=== PATIENT | male | born 1970 | race African-American/Black ===

== ENCOUNTER 2017-12-12 09:18 | Inpatient (IN) | payer OTHER ==
[2017-12-12 10:12] VITALS: BMI 21.1
--- NOTE | 2017-12-12 10:29 | HP ---
COWS - Scale Resting Pulse: 0= [place] 80 or Below Sweatin= Chills/Flushing Restless Observation: 1= Difficult to Sit Still Pupil Size: 0= Normal to Room Light Bone or Joint Aches: 1= Mild Discomfort Runny Nose/ Eye Tearin= Nasal Congestion GI Upset > 30mins: 1= Stomach Cramp Tremor Observation: 1= Tremor [place], Not Seen Yawning Observation: 1= 1-2x During Session Anxiety or Irritability: 2=Irritable/Anxious Goose Flesh Skin: 0=Smooth Skin COWS Score: 9 Admission ROS BHS - HPI Chief Complaint: I'm too tired, I can't keep running after drugs, I want to stop Allergies/Adverse Reactions: Allergies Allergy/AdvReac Type Severity Reaction Status Date / Time No Known Allergies Allergy Verified 12/12/17 10:19 History of Present Illness: 47 yo gentleman here for detox from opiates - using heroin and street methadone - also using cocaine. Only occasional alcohol. Denies seizures, does have black outs sometimes. Previously detoxed in 2014 and also was in rehab. Exam Limitations: Clinical Condition - Ebola screening Have you traveled outside of the country in the last 21 days: No Have you had contact with anyone from an Ebola affected area: No Have you been sick,other than usual withdrawal symptoms: No Do you have a fever: No - Review of Systems Constitutional: Loss of Appetite, Malaise, Changes in sleep, Weakness, Unintentional Wgt. Loss EENT: reports: Nose Congestion Respiratory: reports: No Symptoms reported Cardiac: reports: No Symptoms Reported GI: reports: Poor Appetite, Poor Fluid Intake : reports: Dysuria Musculoskeletal: reports: Joint Pain, Muscle Pain Integumentary: reports: No Symptoms Reported Neuro: reports: Headache Endocrine: reports: No Symptoms Reported Hematology: reports: No Symptoms Reported Psychiatric: reports: Judgement Intact, Mood/Affect Appropiate, Orientated x3 Other Systems: Reviewed and Negative Patient History - Patient Medical History Hx Anemia: No Hx Asthma: No Hx Chronic Obstructive Pulmonary Disease (COPD): No Hx Cancer: No Hx Cardiac Disorders: No Hx Congestive Heart Failure: No Hx Hypertension: No Hx Hypercholesterolemia: Yes (not taking medication) Hx Pacemaker: No HX Cerebrovascular Accident: No Hx Seizures: No Hx Dementia: No Hx Diabetes: No Hx Gastrointestinal Disorders: No Hx Liver Disease: No Hx Genitourinary Disorders: No Hx Sexually Transmitted Disorders: No Hx Renal Disease (ESRD): No Hx Thyroid Disease: No Hx Human Immunodeficiency Virus (HIV): No Hx Hepatitis C: No Hx Depression: No Hx Suicide Attempt: No Hx Bipolar Disorder: Yes (history of meds (seroquel) none x 1 year) Hx Schizophrenia: No - Patient Surgical History Hx Orthopedic Surgery: Yes (left arm broken forearm) - PPD History Previous Implant?: Yes Documented Results: Negative w/o proof PPD to be Administered?: Yes - Reproductive History Patient is a Female of Child Bearing Age (11 -55 yrs old): No (male) - Smoking Cessation Smoking history: Current every day smoker Have you smoked in the past 12 months: Yes Initiated information on smoking cessation: Yes 'Breaking Loose' booklet given: 12/12/17 (give on floor) - Substance & Tx. History Hx Alcohol Use: No Hx Substance Use: Yes Substance Use Type: Cocaine, Heroin, Opiates Hx Substance Use Treatment: Yes (detox, rehab) - Substances Abused Heroin Route: Inhalation Frequency: Daily Amount used: 5 bags Age of first use: 44 Date of Last Use: 12/11/17 Non-Rx Methadone Frequency: 1-2 times per week Amount used: 40mg Age of first use: 47 Date of Last Use: 12/11/17 Cocaine Route: Inhalation Frequency: Daily Amount used: $400 Age of first use: 24 Date of Last Use: 12/11/17 Family Disease History - Family Disease History Family Disease History: [place]: Father (, prostate cancer), Mother (living, lung cancer), Other: Father, Mother, Sister (four - living - healthy) Admission Physical Exam [facility] - Vital Signs Vital Signs: Vital Signs - 24 hr 12/12/17 10:09 Temperature 97.1 F L Pulse Rate 75 Respiratory 18 Rate Blood Pressure 130/75 - Physical General Appearance: Yes: Nourished, Appropriately Dressed, Mild Distress, Irritable, Anxious HEENTM: Yes: Hearing grossly Normal, Normocephalic, Normal Voice, Pharynx Normal Respiratory: Yes: Lungs Clear, Normal Breath Sounds Neck: Yes: No masses,lesions,Nodules, Supple Breast: Yes: Breast Exam Deferred Cardiology: Yes: Regular Rhythm, Regular Rate Abdominal: Yes: Flat, Soft Genitourinary: Yes: Dysuria Back: Yes: Normal Inspection Musculoskeletal: Yes: full range of Motion, Gait Steady, Back pain, Muscle Pain Extremities: Yes: Normal Capillary Refill, Normal Inspection, Normal Range of Motion, Non-Tender Neurological: Yes: Fully Oriented, Alert, Motor Strength 5/5, Normal Mood/Affect , Normal Response Integumentary: Yes: Normal Color, Warm, Moist Lymphatic: Yes: Within Normal Limits - Diagnostic (1) Opioid dependence with withdrawal Current Visit: Yes Status: Chronic (2) Cocaine dependence Current Visit: Yes Status: Chronic Qualifiers: Substance use status: uncomplicated Qualified Code(s): F14.20 - Cocaine dependence, uncomplicated (3) Nicotine dependence Current Visit: Yes Status: Chronic Qualifiers: Nicotine product type: cigarettes Substance use status: uncomplicated Qualified Code(s): F17.210 - Nicotine dependence, cigarettes, uncomplicated Cleared for Admission [facility] - Detox or Rehab [facility] Level of Care: Medically Managed Detox Regimen/Protocol: Methadone [facility] Breath Alcohol Content Breath Alcohol Content: 0 Urine Drug Screen - Results Drug Screen Negative: No Urine Drug Screen Results: MARION-Cocaine, OPI-Opiates, MTD-Methadone
[2017-12-12] MEDS ORDERED: MAGNESIUM HYDROX 2400MG/30ML ORAL SUSPENSION 30 ML CUP PO PRN (10:30)
[2017-12-12] MEDS ORDERED: NICOTINE POLACRILEX 4 MG GUM BUC PRN (10:30)
[2017-12-12] MEDS ORDERED: hydrOXYzine PAMOATE 50 MG CAPSULE (FP) PO PRN (10:30)
[2017-12-12] MEDS ORDERED: MAGNESIUM CITRATE 300 ML BOTTLE PO PRN (10:30)
[2017-12-12] MEDS ORDERED: MAG HYDROX/AL HYDROX/SIMETH 30 ML UNIT-DOSE CUP PO PRN (10:30)
[2017-12-12] MEDS ORDERED: P-EPHED 60MG/TRIPROLIDI 2.5MG TABLET PO PRN (10:30)
[2017-12-12] MEDS ORDERED: LOPERAMIDE HCL 2 MG CAPSULE PO PRN (10:30)
[2017-12-12] MEDS ORDERED: MENTHOL/PHENOL 1 EACH UD MM PRN (10:30)
[2017-12-12] MEDS ORDERED: guaiFENesin/D-METHORPHAN HB 10 ML UNIT-DOSE CUPS PO PRN (10:30)
[2017-12-12] MEDS ORDERED: METHADONE HCL 10 MG TABLET (FOR DETOX USE ONLY) PO ONE ×2 (12:00→23:00)
[2017-12-12] MEDS: diazePAM 5 MG TABLET PO PRN (12:32)
[2017-12-12 19:45] LABS: URINE APPEARANCE TURBID; URINE BILIRUBIN NEGATIVE (NEGATIVE); URINE BLOOD NEGATIVE (NEGATIVE); URINE COLOR AMBER; URINE GLUCOSE (UA) NEGATIVE (NEGATIVE); URINE KETONE NEGATIVE (NEGATIVE); URINE LEUK ESTERASE TRACE (NEGATIVE); URINE NITRITE NEGATIVE (NEGATIVE); URINE PROTEIN NEGATIVE (NEGATIVE); URINE UROBILINOGEN 4.0 E.U/dl mg/dL (0.2-1.0)
[2017-12-12 19:52] LABS: EPI CELLS RARE /HPF (FEW); URINE BACTERIA RARE /hpf (NONE SEEN); URINE MUCUS MANY
[2017-12-12] MEDS: THIAMINE HCL 100 MG TABLET (FP) PO SCH (22:43)
[2017-12-13] MEDS: IBUPROFEN 400 MG TABLET (FP) PO PRN (08:26)
--- NOTE | 2017-12-13 09:41 | CONSULT ---
[facility] Psychiatric Consult - Data Date of interview: 12/13/17 Admission source: Self-referred Identifying data: Mr Garcia is a 47 years old single Black male, unemployed with no source of income, homeless seeking detox treatment for heroin, methadone and cocaine Substance Abuse History: Reports history of opoid and cocaine use. Refer to addiction counselor's note for further information Medical History: Significant for hyperlipidemia and history of orthosurgery for fracture left arm. Smokes cigarettes 1ppd daily Psychiatric History: Denies history of previous psychiatric treatment Physical/Sexual Abuse/Trauma History: Denies history of verbal, physical or sexual abuse as well as DV relationship Additional Comment: Reports history of 2 previous arrests including one felony conviction. Reports being on parole till 2019 Mental Status Exam - Mental Status Exam Alert and Oriented to: Time, Place, Person Cognitive Function: Fair Patient Appearance: Well Groomed Mood: Depressed Affect: Appropriate Patient Behavior: Cooperative Speech Pattern: Clear Voice Loudness: Normal Thought Process: Intact, Goal Oriented Thought Disorder: Not Present Hallucinations: Denies Suicidal Ideation: Denies Homicidal Ideation: Denies Insight/Judgement: Poor Sleep: Poorly Appetite: Good Muscle strength/Tone: Normal Gait/Station: Normal Psychiatric Findings - Problem List ([place] 1, 2,3) (1) Substance induced mood disorder Current Visit: Yes Status: Acute (2) Substance-induced sleep disorder Current Visit: Yes Status: Acute (3) Opioid dependence with withdrawal Current Visit: Yes Status: Acute (4) Cocaine dependence Current Visit: Yes Status: Acute Qualifiers: Substance use status: uncomplicated Qualified Code(s): F14.20 - Cocaine dependence, uncomplicated (5) Nicotine dependence Current Visit: Yes Status: Chronic Qualifiers: Nicotine product type: cigarettes Substance use status: uncomplicated Qualified Code(s): F17.210 - Nicotine dependence, cigarettes, uncomplicated (6) Hyperlipidemia Current Visit: Yes Status: Chronic - Initial Treatment Plan Initial Treatment Plan: 1) Start Ambien 10 mg po HS prn for insomnia. 2) Continue inpatient detoxification
[2017-12-13] MEDS ORDERED: METHADONE HCL 10 MG TABLET (FOR DETOX USE ONLY) PO ONE (10:00)
[2017-12-13 10:29] LABS: HEMATOCRIT 38.9 % (35.4-49); HEMOGLOBIN 12.6 GM/dL (11.7-16.9); MCH 29.5 pg (25.7-33.7); MCHC 32.3 g/dl (32.0-35.9); MEAN CELL VOLUME 91.2 fl (80-96); MEAN PLT VOLUME 8.4 fl (7.5-11.1); PLATELET COUNT 214 K/MM3 (134-434); RBC 4.27 M/mm3 (4.00-5.60); RDW 14.7 % (11.9-15.9)
[2017-12-13 10:37] LABS: CHLORIDE 106 mmol/L (98-107); POTASSIUM 4.4 mmol/L (3.5-5.1); SODIUM 142 mmol/L (136-145)
[2017-12-13 10:50] LABS: ALBUMIN 3.2 g/dl (3.4-5.0); ALK PHOS 69 U/L (45-117); ANION GAP 4 (8-16); BILIRUBIN,TOTAL 0.2 mg/dL (0.2-1.0); BLOOD UREA NITROGEN 15 mg/dL (7-18); CALCIUM 8.6 mg/dL (8.5-10.1); CO2 32 mmol/L (21-32); CREATININE 1.1 mg/dL (0.7-1.3); GLUCOSE,RANDOM 95 mg/dL (74-106); SGOT/AST 10 U/L (15-37); SGPT/ALT 15 U/L (12-78); TOT PROT 6.5 g/dl (6.4-8.2)
[2017-12-13] MEDS: diazePAM 5 MG TABLET PO PRN (11:14)
[2017-12-13] MEDS: PRENATAL VITAMINS W/ FOLIC ACID TABLET (FP) PO SCH (11:14)
[2017-12-13] MEDS: ACETAMINOPHEN 325 MG TABLET (FP) PO PRN (11:14)
--- NOTE | 2017-12-13 11:39 | PN ---
BHS COWS - Scale Resting Pulse: 0= [place] 80 or Below Sweatin= Chills/Flushing Restless Observation: 1= Difficult to Sit Still Pupil Size: 1= Pupils >than Normal Bone or Joint Aches: 1= Mild Discomfort Runny Nose/ Eye Tearin= Nasal Congestion GI Upset > 30mins: 1= Stomach Cramp Tremor Observation of Outstretched Hands: 1= Tremor [place], Not Seen Yawning Observation: 0= None Anxiety or Irritability: 0= None Goose Flesh Skin: 0=Smooth Skin COWS Score: 7 BHS Progress Note (SOAP) Subjective: general body ache nasal congestion gi distress Objective: 12/13/17 11:38 Vital Signs Temperature 96.8 F L 12/13/17 10:23 Pulse Rate 75 12/13/17 10:23 Respiratory Rate 18 12/13/17 10:23 Blood Pressure 124/64 12/13/17 10:23 O2 Sat by Pulse Oximetry (%) Laboratory Last Values WBC 5.0 K/mm3 (4.0-10.0) 12/13/17 07:40 RBC 4.27 M/mm3 (4.00-5.60) 12/13/17 07:40 Hgb 12.6 GM/dL (11.7-16.9) 12/13/17 07:40 Hct 38.9 % (35.4-49) 12/13/17 07:40 MCV 91.2 fl (80-96) 12/13/17 07:40 MCH 29.5 pg (25.7-33.7) 12/13/17 07:40 MCHC 32.3 g/dl (32.0-35.9) 12/13/17 07:40 RDW 14.7 % (11.9-15.9) 12/13/17 07:40 Plt Count 214 K/MM3 (134-434) 12/13/17 07:40 MPV 8.4 fl (7.5-11.1) 12/13/17 07:40 Sodium 142 mmol/L (136-145) 12/13/17 07:40 Potassium 4.4 mmol/L (3.5-5.1) 12/13/17 07:40 Chloride 106 mmol/L (98-107) 12/13/17 07:40 Carbon Dioxide 32 mmol/L (21-32) 12/13/17 07:40 Anion Gap 4 (8-16) L 12/13/17 07:40 BUN 15 mg/dL (7-18) 12/13/17 07:40 Creatinine 1.1 mg/dL (0.7-1.3) 12/13/17 07:40 Creat Clearance w eGFR > 60 (>60) 12/13/17 07:40 Random Glucose 95 mg/dL (74-106) 12/13/17 07:40 Calcium 8.6 mg/dL (8.5-10.1) 12/13/17 07:40 Total Bilirubin 0.2 mg/dL (0.2-1.0) 12/13/17 07:40 AST 10 U/L (15-37) L 12/13/17 07:40 ALT 15 U/L (12-78) 12/13/17 07:40 Alkaline Phosphatase 69 U/L (45-117) 12/13/17 07:40 Total Protein 6.5 g/dl (6.4-8.2) 12/13/17 07:40 Albumin 3.2 g/dl (3.4-5.0) L 12/13/17 07:40 Urine Color [place] 12/12/17 19:00 Urine Appearance Turbid 12/12/17 19:00 Urine pH 5.0 (5.0-8.0) 12/12/17 19:00 Ur Specific [place] 1.026 (1.001-1.035) 12/12/17 19:00 Urine Protein Negative (NEGATIVE) 12/12/17 19:00 Urine Glucose (UA) Negative (NEGATIVE) 12/12/17 19:00 Urine Ketones Negative (NEGATIVE) 12/12/17 19:00 Urine Blood Negative (NEGATIVE) 12/12/17 19:00 Urine Nitrite Negative (NEGATIVE) 12/12/17 19:00 Urine Bilirubin Negative (NEGATIVE) 12/12/17 19:00 Urine Urobilinogen 4.0 e.u/dl mg/dL (0.2-1.0) 12/12/17 19:00 Ur Leukocyte Esterase Trace (NEGATIVE) 12/12/17 19:00 Urine WBC (Auto) 11 /hpf (3-5) 12/12/17 19:00 Urine RBC (Auto) 9 /hpf (0-3) 12/12/17 19:00 Ur Epithelial Cells Rare /HPF (FEW) 12/12/17 19:00 Urine Bacteria Rare /hpf (NONE SEEN) 12/12/17 19:00 Urine Mucus Many 12/12/17 19:00 lab noted Assessment: 12/13/17 11:38 withdrawal sx Plan: continue detox
--- NOTE | 2017-12-13 12:57 | EKG ---
Test Reason : Blood Pressure : / mmHG Vent. Rate : 062 BPM Atrial Rate : 062 BPM P-R Int : 156 ms QRS Dur : 094 ms QT Int : 394 ms P-R-T Axes : 069 064 070 degrees QTc Int : 399 ms NORMAL SINUS RHYTHM MODERATE VOLTAGE CRITERIA FOR LVH, MAY BE NORMAL VARIANT BORDERLINE ECG NO PREVIOUS ECGS AVAILABLE Confirmed by Efrain Hill ([id number]) on 12/13/2017 12:57:23 PM Referred By: Confirmed By:Efrain Hill
[2017-12-13] MEDS: THIAMINE HCL 100 MG TABLET (FP) PO SCH (22:59)
[2017-12-14] MEDS ORDERED: METHADONE HCL 5 MG TABLET (FOR DETOX USE ONLY) PO ONE (10:00)
[2017-12-14] MEDS: diazePAM 5 MG TABLET PO PRN ×3 (11:06→22:18)
[2017-12-14] MEDS: PRENATAL VITAMINS W/ FOLIC ACID TABLET (FP) PO SCH (11:06)
[2017-12-14] MEDS: METHYL SALICYLATE/MENTHOL OINT 30 GM TUBE TP SCH ×2 (12:44→23:09)
--- NOTE | 2017-12-14 14:37 | PN ---
S COWS - Scale Resting Pulse: 0= [place] 80 or Below Sweatin= Chills/Flushing Restless Observation: 3= Extraneous Movement Pupil Size: 1= Pupils >than Normal Bone or Joint Aches: 2= Severe Diffuse Aches Runny Nose/ Eye Tearin= Nasal Congestion GI Upset > 30mins: 2= Nausea/Diarrhea Tremor Observation of Outstretched Hands: 0= None Yawning Observation: 1= 1-2x During Session Anxiety or Irritability: 2=Irritable/Anxious Goose Flesh Skin: 0=Smooth Skin COWS Score: 13 S Progress Note (SOAP) Objective: 12/14/17 14:36 Laboratory Tests 12/12/17 12/13/17 12/13/17 19:00 07:40 07:40 WBC 5.0 RBC 4.27 Hgb 12.6 Hct 38.9 MCV 91.2 MCH 29.5 MCHC 32.3 RDW 14.7 Plt Count 214 MPV 8.4 Sodium 142 Potassium 4.4 Chloride 106 Carbon Dioxide 32 Anion Gap 4 L BUN 15 Creatinine 1.1 Creat Clearance w eGFR > 60 Random Glucose 95 Calcium 8.6 Total Bilirubin 0.2 AST 10 L ALT 15 Alkaline Phosphatase 69 Total Protein 6.5 Albumin 3.2 L Urine Color Courtney Urine Appearance Turbid Urine pH 5.0 Ur Specific [place] 1.026 Urine Protein Negative Urine Glucose (UA) Negative Urine Ketones Negative Urine Blood Negative Urine Nitrite Negative Urine Bilirubin Negative Urine Urobilinogen 4.0 e.u/dl Ur Leukocyte Esterase Trace Urine WBC (Auto) 11 Urine RBC (Auto) 9 Ur Epithelial Cells Rare Urine Bacteria Rare Urine Mucus Many RPR Titer HIV 1&2 Antibody Screen HIV P24 Antigen 12/13/17 12/13/17 07:40 07:40 WBC RBC Hgb Hct MCV MCH MCHC RDW Plt Count MPV Sodium Potassium Chloride Carbon Dioxide Anion Gap BUN Creatinine Creat Clearance w eGFR Random Glucose Calcium Total Bilirubin AST ALT Alkaline Phosphatase Total Protein Albumin Urine Color Urine Appearance Urine pH Ur Specific [place] Urine Protein Urine Glucose (UA) Urine Ketones Urine Blood Urine Nitrite Urine Bilirubin Urine Urobilinogen Ur Leukocyte Esterase Urine WBC (Auto) Urine RBC (Auto) Ur Epithelial Cells Urine Bacteria Urine Mucus RPR Titer Nonreactive HIV 1&2 Antibody Screen Negative HIV P24 Antigen Negative Vital Signs - 24 hr 12/13/17 12/13/17 12/14/17 17:28 23:12 00:30 Temperature 98.1 F 98.4 F Pulse Rate 47 L 67 Respiratory 16 18 18 Rate Blood Pressure 102/57 112/72 12/14/17 12/14/17 12/14/17 03:30 06:26 09:21 Temperature 97.4 F L 97.7 F Pulse Rate 67 64 Respiratory 18 16 20 Rate Blood Pressure 98/51 119/85 12/14/17 14:35 Temperature 98.4 F Pulse Rate 65 Respiratory 20 Rate Blood Pressure 132/72 Assessment: 12/14/17 14:37 withdrawal symptoms Plan: cont detox protocol
[2017-12-14] MEDS: ZOLPIDEM TARTRATE 5 MG TABLET PO PRN (22:17)
[2017-12-14] MEDS: THIAMINE HCL 100 MG TABLET (FP) PO SCH (22:17)
[2017-12-14] MEDS: ACETAMINOPHEN 325 MG TABLET (FP) PO PRN (22:19)
[2017-12-15] MEDS ORDERED: METHADONE HCL 5 MG TABLET (FOR DETOX USE ONLY) PO ONE (10:00)
[2017-12-15] MEDS: PRENATAL VITAMINS W/ FOLIC ACID TABLET (FP) PO SCH (10:59)
[2017-12-15] MEDS: METHYL SALICYLATE/MENTHOL OINT 30 GM TUBE TP SCH ×2 (11:20→22:10)
--- NOTE | 2017-12-15 12:00 | PN ---
S Progress Note (SOAP) Subjective: ANXIOUS, POOR SLEEP, ACHY Objective: 12/15/17 11:59 Laboratory Tests 12/12/17 12/13/17 12/13/17 19:00 07:40 07:40 WBC 5.0 RBC 4.27 Hgb 12.6 Hct 38.9 MCV 91.2 MCH 29.5 MCHC 32.3 RDW 14.7 Plt Count 214 MPV 8.4 Sodium 142 Potassium 4.4 Chloride 106 Carbon Dioxide 32 Anion Gap 4 L BUN 15 Creatinine 1.1 Creat Clearance w eGFR > 60 Random Glucose 95 Calcium 8.6 Total Bilirubin 0.2 AST 10 L ALT 15 Alkaline Phosphatase 69 Total Protein 6.5 Albumin 3.2 L Urine Color [place] Urine Appearance Turbid Urine pH 5.0 Ur Specific [place] 1.026 Urine Protein Negative Urine Glucose (UA) Negative Urine Ketones Negative Urine Blood Negative Urine Nitrite Negative Urine Bilirubin Negative Urine Urobilinogen 4.0 e.u/dl Ur Leukocyte Esterase Trace Urine WBC (Auto) 11 Urine RBC (Auto) 9 Ur Epithelial Cells Rare Urine Bacteria Rare Urine Mucus Many RPR Titer HIV 1&2 Antibody Screen HIV P24 Antigen 12/13/17 12/13/17 07:40 07:40 WBC RBC Hgb Hct MCV MCH MCHC RDW Plt Count MPV Sodium Potassium Chloride Carbon Dioxide Anion Gap BUN Creatinine Creat Clearance w eGFR Random Glucose Calcium Total Bilirubin AST ALT Alkaline Phosphatase Total Protein Albumin Urine Color Urine Appearance Urine pH Ur Specific [place] Urine Protein Urine Glucose (UA) Urine Ketones Urine Blood Urine Nitrite Urine Bilirubin Urine Urobilinogen Ur Leukocyte Esterase Urine WBC (Auto) Urine RBC (Auto) Ur Epithelial Cells Urine Bacteria Urine Mucus RPR Titer Nonreactive HIV 1&2 Antibody Screen Negative HIV P24 Antigen Negative Vital Signs - 24 hr 12/14/17 12/14/17 12/14/17 14:35 17:59 23:02 Temperature 98.4 F 98.2 F 100.2 F H Pulse Rate 65 87 89 Respiratory 20 20 20 Rate Blood Pressure 132/72 125/66 141/99 12/15/17 12/15/17 12/15/17 00:30 03:30 06:00 Temperature 98.2 F Pulse Rate 77 Respiratory 18 18 18 Rate Blood Pressure 130/70 12/15/17 09:32 Temperature 98.1 F Pulse Rate 67 Respiratory 16 Rate Blood Pressure 107/77 Assessment: 12/15/17 11:59 WITHDRAWAL Plan: CONT DETOX PROTOCOL
[2017-12-15] MEDS: THIAMINE HCL 100 MG TABLET (FP) PO SCH (22:09)
[2017-12-15] MEDS: ZOLPIDEM TARTRATE 5 MG TABLET PO PRN (22:09)
[2017-12-16] MEDS ORDERED: METHADONE HCL 10 MG TABLET (FOR DETOX USE ONLY) PO ONE (10:00)
[2017-12-16] MEDS: PRENATAL VITAMINS W/ FOLIC ACID TABLET (FP) PO SCH (10:49)
[2017-12-16] MEDS: METHYL SALICYLATE/MENTHOL OINT 30 GM TUBE TP SCH ×2 (10:49→22:16)
[2017-12-16] MEDS: IBUPROFEN 400 MG TABLET (FP) PO PRN (10:50)
--- NOTE | 2017-12-16 15:25 | PN ---
BHS Progress Note (SOAP) Subjective: IS, shakes but better Objective: 12/16/17 15:24 Vital Signs Temperature 97.5 F L 12/16/17 13:14 Pulse Rate 61 12/16/17 13:14 Respiratory Rate 18 12/16/17 13:14 Blood Pressure 123/62 12/16/17 13:14 O2 Sat by Pulse Oximetry (%) Laboratory Tests 12/12/17 12/13/17 12/13/17 19:00 07:40 07:40 WBC 5.0 RBC 4.27 Hgb 12.6 Hct 38.9 MCV 91.2 MCH 29.5 MCHC 32.3 RDW 14.7 Plt Count 214 MPV 8.4 Sodium 142 Potassium 4.4 Chloride 106 Carbon Dioxide 32 Anion Gap 4 L BUN 15 Creatinine 1.1 Creat Clearance w eGFR > 60 Random Glucose 95 Calcium 8.6 Total Bilirubin 0.2 AST 10 L ALT 15 Alkaline Phosphatase 69 Total Protein 6.5 Albumin 3.2 L Urine Color [place] Urine Appearance Turbid Urine pH 5.0 Ur Specific [place] 1.026 Urine Protein Negative Urine Glucose (UA) Negative Urine Ketones Negative Urine Blood Negative Urine Nitrite Negative Urine Bilirubin Negative Urine Urobilinogen 4.0 e.u/dl Ur Leukocyte Esterase Trace Urine WBC (Auto) 11 Urine RBC (Auto) 9 Ur Epithelial Cells Rare Urine Bacteria Rare Urine Mucus Many RPR Titer HIV 1&2 Antibody Screen HIV P24 Antigen 12/13/17 12/13/17 07:40 07:40 WBC RBC Hgb Hct MCV MCH MCHC RDW Plt Count MPV Sodium Potassium Chloride Carbon Dioxide Anion Gap BUN Creatinine Creat Clearance w eGFR Random Glucose Calcium Total Bilirubin AST ALT Alkaline Phosphatase Total Protein Albumin Urine Color Urine Appearance Urine pH Ur Specific [place] Urine Protein Urine Glucose (UA) Urine Ketones Urine Blood Urine Nitrite Urine Bilirubin Urine Urobilinogen Ur Leukocyte Esterase Urine WBC (Auto) Urine RBC (Auto) Ur Epithelial Cells Urine Bacteria Urine Mucus RPR Titer Nonreactive HIV 1&2 Antibody Screen Negative HIV P24 Antigen Negative pt aox3 in nad ambulating Assessment: 12/16/17 15:24 withdrawal sx's Plan: cont. detox increase fluids d/c in am
[2017-12-16] MEDS: THIAMINE HCL 100 MG TABLET (FP) PO SCH (22:15)
[2017-12-17] MEDS ORDERED: METHADONE HCL 5 MG TABLET (FOR DETOX USE ONLY) PO ONE (06:00)
[2017-12-17 09:41] VITALS: BP 108/74; PULSE 64; TEMP 96.3
[2017-12-17] MEDS: METHYL SALICYLATE/MENTHOL OINT 30 GM TUBE TP SCH (11:40)
[2017-12-17] MEDS: PRENATAL VITAMINS W/ FOLIC ACID TABLET (FP) PO SCH (11:41)
--- NOTE | 2017-12-17 12:59 | DS ---
[facility] Detox Discharge Summary Admission Date: 12/12/17 Discharge Date: 12/17/17 - History Present History: Opioid Dependence - Physical Exam Results Vital Signs: Vital Signs Temperature 96.3 F L 12/17/17 09:40 Pulse Rate 64 12/17/17 09:40 Respiratory Rate 18 12/17/17 09:40 Blood Pressure 108/74 12/17/17 09:40 O2 Sat by Pulse Oximetry (%) Pertinent Admission Physical Exam Findings: withdrawal sx Laboratory Last Values WBC 5.0 K/mm3 (4.0-10.0) 12/13/17 07:40 RBC 4.27 M/mm3 (4.00-5.60) 12/13/17 07:40 Hgb 12.6 GM/dL (11.7-16.9) 12/13/17 07:40 Hct 38.9 % (35.4-49) 12/13/17 07:40 MCV 91.2 fl (80-96) 12/13/17 07:40 MCH 29.5 pg (25.7-33.7) 12/13/17 07:40 MCHC 32.3 g/dl (32.0-35.9) 12/13/17 07:40 RDW 14.7 % (11.9-15.9) 12/13/17 07:40 Plt Count 214 K/MM3 (134-434) 12/13/17 07:40 MPV 8.4 fl (7.5-11.1) 12/13/17 07:40 Sodium 142 mmol/L (136-145) 12/13/17 07:40 Potassium 4.4 mmol/L (3.5-5.1) 12/13/17 07:40 Chloride 106 mmol/L (98-107) 12/13/17 07:40 Carbon Dioxide 32 mmol/L (21-32) 12/13/17 07:40 Anion Gap 4 (8-16) L 12/13/17 07:40 BUN 15 mg/dL (7-18) 12/13/17 07:40 Creatinine 1.1 mg/dL (0.7-1.3) 12/13/17 07:40 Creat Clearance w eGFR > 60 (>60) 12/13/17 07:40 Random Glucose 95 mg/dL (74-106) 12/13/17 07:40 Calcium 8.6 mg/dL (8.5-10.1) 12/13/17 07:40 Total Bilirubin 0.2 mg/dL (0.2-1.0) 12/13/17 07:40 AST 10 U/L (15-37) L 12/13/17 07:40 ALT 15 U/L (12-78) 12/13/17 07:40 Alkaline Phosphatase 69 U/L (45-117) 12/13/17 07:40 Total Protein 6.5 g/dl (6.4-8.2) 12/13/17 07:40 Albumin 3.2 g/dl (3.4-5.0) L 12/13/17 07:40 Urine Color [place] 12/12/17 19:00 Urine Appearance Turbid 12/12/17 19:00 Urine pH 5.0 (5.0-8.0) 12/12/17 19:00 Ur Specific [place] 1.026 (1.001-1.035) 12/12/17 19:00 Urine Protein Negative (NEGATIVE) 12/12/17 19:00 Urine Glucose (UA) Negative (NEGATIVE) 12/12/17 19:00 Urine Ketones Negative (NEGATIVE) 12/12/17 19:00 Urine Blood Negative (NEGATIVE) 12/12/17 19:00 Urine Nitrite Negative (NEGATIVE) 12/12/17 19:00 Urine Bilirubin Negative (NEGATIVE) 12/12/17 19:00 Urine Urobilinogen 4.0 e.u/dl mg/dL (0.2-1.0) 12/12/17 19:00 Ur Leukocyte Esterase Trace (NEGATIVE) 12/12/17 19:00 Urine WBC (Auto) 11 /hpf (3-5) 12/12/17 19:00 Urine RBC (Auto) 9 /hpf (0-3) 12/12/17 19:00 Ur Epithelial Cells Rare /HPF (FEW) 12/12/17 19:00 Urine Bacteria Rare /hpf (NONE SEEN) 12/12/17 19:00 Urine Mucus Many 12/12/17 19:00 RPR Titer Nonreactive (NONREACTIVE) 12/13/17 07:40 HIV 1&2 Antibody Screen Negative 12/13/17 07:40 HIV P24 Antigen Negative 12/13/17 07:40 lab noted - Treatment Hospital Course: Detox Protocol Followed, Detoxed Safely, Responded well, Discharged Condition Good, Rehab Referral Accepted Patient has Accepted a Rehab Referral to: as per counselor arranged - Medication Discharge Medications: Ambulatory Orders NK [No Known Home Medication] 12/12/17 - Diagnosis (1) Opioid dependence with withdrawal Status: Acute - AMA Did Patient Leave Against Medical Advice: No
== END 2017-12-17 09:05 | disposition home or self-care (01) | DRG 773 ==
LOC: YASAS 09:18 → Y6N 11:32
PROVIDERS: ADMIT Internal Medicine; ATTEND Internal Medicine
PROC: HZ2ZZZZ Detoxification Services for Substance Abuse Treatment (ICD-10-PCS; principal; 2017-12-12)
DX: F11.23 Opioid dependence with withdrawal (principal); F14.20 Cocaine dependence, uncomplicated; F17.210 Nicotine dependence, cigarettes, uncomplicated; F19.24 Other psychoactive substance dependence with psychoactive substance-induced mood disorder; F19.282 Other psychoactive substance dependence with psychoactive substance-induced sleep disorder; E78.5 Hyperlipidemia, unspecified
CPT/HCPCS: 36415; 80053; 81003; 81015; 85027; 86593; 87389; 93005; 93010

== ENCOUNTER 2018-08-08 10:04 | Inpatient (IN) | payer OTHER ==
[2018-08-08 10:54] VITALS: BMI 22.5
--- NOTE | 2018-08-08 12:32 | HP ---
CIWA Score - CIWA Score Nausea/Vomitin-Int. Nausea w/Dry Heave Muscle Tremors: 4-Moderate,w/Arms Extend Anxiety: 4-Mod. Anxious/Guarded Agitation: 4-Moderately Restless Paroxysmal Sweats: 1-Minimal Palms Moist Orientation: 0-Oriented Tacttile Disturbances: 0-None Auditory Disturbances: 0-None Visual Disturbances: 0-None Headache: 0-None Present CIWA-Ar Total Score: 17 Admission ROS BHS - HPI Chief Complaint: Here for alcohol withdrawal. Allergies/Adverse Reactions: Allergies Allergy/AdvReac Type Severity Reaction Status Date / Time No Known Allergies Allergy Verified 08/08/18 11:55 History of Present Illness: Nicotine use began at age 15. Alcohol use began at age 17. Cocaine use began at age 24. Reports 6 months of sobriety when not in a controlled environment. Denies hx seizures or blackouts. Fx (L) ankle on 08/08 and casted at [facility]. Denies significant PMH. Mental health issues being f/u by a MH provider. Exam Limitations: No Limitations - Ebola screening Have you traveled outside of the country in the last 21 days: No (N) Have you had contact with anyone from an Ebola affected area: No Have you been sick,other than usual withdrawal symptoms: No Do you have a fever: No - Review of Systems Constitutional: Diaphoresis, Loss of Appetite (r/t substance use) EENT: reports: No Symptoms Reported Respiratory: reports: No Symptoms reported Cardiac: reports: No Symptoms Reported GI: reports: No Symptoms Reported : reports: No Symptoms Reported Musculoskeletal: reports: Other (Fx ankle on 08/06/18. Half-cast in put place at [facility]) Integumentary: reports: No Symptoms Reported Neuro: reports: Tremors Endocrine: reports: No Symptoms Reported Hematology: reports: No Symptoms Reported Psychiatric: reports: Judgement Intact, Orientated x3, Agitated, Anxious Patient History - Patient Medical History Hx Anemia: No Hx Asthma: No Hx Chronic Obstructive Pulmonary Disease (COPD): No Hx Cancer: No Hx Cardiac Disorders: No Hx Congestive Heart Failure: No Hx Hypertension: No Hx Hypercholesterolemia: Yes (not taking medication) Hx Pacemaker: No HX Cerebrovascular Accident: No Hx Seizures: No Hx Dementia: No Hx Diabetes: No Hx Gastrointestinal Disorders: No Hx Liver Disease: No Hx Genitourinary Disorders: No Hx Sexually Transmitted Disorders: No Hx Renal Disease (ESRD): No Hx Thyroid Disease: No Hx Human Immunodeficiency Virus (HIV): No Hx Hepatitis C: No Hx Depression: No Hx Suicide Attempt: No Hx Bipolar Disorder: Yes (history of meds (seroquel) none x 1 year) Hx Schizophrenia: Yes (BIPOLAR) - Patient Surgical History Past Surgical History: Yes Hx Neurologic Surgery: No Hx Cataract Extraction: No Hx Cardiac Surgery: No Hx Lung Surgery: No Hx Breast Surgery: No Hx Breast Biopsy: No Hx Abdominal Surgery: No Hx Appendectomy: No Hx Cholecystectomy: No Hx Genitourinary Surgery: No Hx Section: No Hx Orthopedic Surgery: Yes (left arm broken forearm/L BROKEN ANKLE 08/10) Anesthesia Reaction: No - PPD History Previous Implant?: Yes Documented Results: Negative w/proof Implanted On Prior [facility] Admission?: Yes Date: 12/14/17 PPD to be Administered?: No - Smoking Cessation Smoking history: Current every day smoker Have you smoked in the past 12 months: Yes Aproximately how many cigarettes per day: 20 Hx Chewing Tobacco Use: No Initiated information on smoking cessation: Yes 'Breaking Loose' booklet given: 08/08/18 - Substance & Tx. History Hx Alcohol Use: Yes Hx Substance Use: Yes Substance Use Type: Alcohol, Cocaine Hx Substance Use Treatment: Yes (detox, rehab, residential) - Substances Abused Alcohol Route: Oral Frequency: Daily Amount used: 10/12OZ CANS Age of first use: 17 Date of Last Use: 08/08/18 Cocaine Route: Smoking Frequency: Daily Amount used: 2-3 GRAMS Age of first use: 24 Date of Last Use: 08/07/18 Family Disease History - Family Disease History Family Disease History: [place]: Father (, prostate cancer), Mother (living, lung cancer), Other: Father, Mother, Sister (four - living - healthy) Admission Physical Exam S - Vital Signs Vital Signs: Vital Signs - 24 hr 08/08/18 10:52 Temperature 98.4 F Pulse Rate 97 H Respiratory 19 Rate Blood Pressure 135/82 - Physical General Appearance: Yes: Mild Distress, Tremorous, Irritable, Sweating, Anxious HEENTM: Yes: EOMI, Hearing grossly Normal, Normocephalic, Normal Voice, ISABEL, Pharynx Normal Respiratory: Yes: Chest Non-Tender, Lungs Clear, Normal Breath Sounds, No Respiratory Distress Neck: Yes: No masses,lesions,Nodules, Supple Breast: Yes: Breast Exam Deferred Cardiology: Yes: Regular Rhythm, Regular Rate, S1, S2 Abdominal: Yes: Non Tender, Flat, Soft, Increased Bowel Sounds Genitourinary: Yes: Within Normal Limits Back: Yes: Normal Inspection Musculoskeletal: Yes: full range of Motion, Gait Steady (With use of crutches) Extremities: Yes: Normal Capillary Refill, Normal Range of Motion, Non-Tender, Tremors (upon arms extended), Other (Cast toes to below knee on (L) leg. Toes warm, mobile, non-edematous, w/ cap refill less than 3 sec) Neurological: Yes: complaint investigator II-XII NML intact, Fully Oriented, Alert, Motor Strength 5/5, Normal Mood/Affect, Normal Response Integumentary: Yes: Normal Color, Dry, Warm Lymphatic: Yes: Within Normal Limits - Diagnostic (1) Cast in place on lower extremity Current Visit: Yes Status: Acute (2) Cocaine dependence Current Visit: No Status: Chronic Qualifiers: Substance use status: uncomplicated Qualified Code(s): F14.20 - Cocaine dependence, uncomplicated (3) Nicotine dependence Current Visit: No Status: Chronic Qualifiers: Nicotine product type: cigarettes Substance use status: uncomplicated Qualified Code(s): F17.210 - Nicotine dependence, cigarettes, uncomplicated (4) Alcohol dependence with uncomplicated withdrawal Current Visit: Yes Status: Acute Cleared for Admission [facility] - Detox or Rehab [facility] Level of Care: Medically Managed Detox Regimen/Protocol: Librium [facility] Breath Alcohol Content Breath Alcohol Content: 0.039 Urine Drug Screen - Results Drug Screen Negative: No Urine Drug Screen Results: MARION-Cocaine, OPI-Opiates
[2018-08-08] MEDS ORDERED: NICOTINE POLACRILEX 2 MG GUM BUC PRN (12:50)
[2018-08-08] MEDS ORDERED: chlordiazePOXIDE HCL 25 MG CAPSULE PO ONE (12:50)
[2018-08-08] MEDS ORDERED: MENTHOL/PHENOL 1 EACH UD MM PRN (12:50)
[2018-08-08] MEDS ORDERED: ACETAMINOPHEN 325 MG TABLET (FP) PO PRN (12:50)
[2018-08-08] MEDS ORDERED: MAGNESIUM HYDROX 2400MG/30ML ORAL SUSPENSION 30 ML CUP PO PRN (12:50)
[2018-08-08] MEDS ORDERED: hydrOXYzine PAMOATE 50 MG CAPSULE (FP) PO PRN (12:50)
[2018-08-08] MEDS ORDERED: P-EPHED 60MG/TRIPROLIDI 2.5MG TABLET PO PRN (12:50)
[2018-08-08] MEDS ORDERED: LOPERAMIDE HCL 2 MG CAPSULE PO PRN (12:50)
[2018-08-08] MEDS ORDERED: chlordiazePOXIDE HCL 25 MG CAPSULE PO PRN (12:50)
[2018-08-08] MEDS ORDERED: guaiFENesin/D-METHORPHAN HB 10 ML UNIT-DOSE CUPS PO PRN (12:50)
[2018-08-08] MEDS ORDERED: MAG HYDROX/AL HYDROX/SIMETH 30 ML UNIT-DOSE CUP PO PRN (12:50)
[2018-08-08] MEDS ORDERED: MAGNESIUM CITRATE 300 ML BOTTLE PO PRN (12:50)
[2018-08-08] MEDS: IBUPROFEN 400 MG TABLET (FP) PO PRN ×2 (14:56→23:12)
[2018-08-08] MEDS: chlordiazePOXIDE HCL 25 MG CAPSULE PO SCH ×2 (17:43→23:07)
[2018-08-08] MEDS ORDERED: MELATONIN 5 MG TABLETS PO PRN (22:00)
[2018-08-08] MEDS: THIAMINE HCL 100 MG TABLET (FP) PO SCH (23:07)
[2018-08-09 00:48] LABS: URINE APPEARANCE TURBID; URINE BILIRUBIN NEGATIVE (<2.0 mg/dL); URINE COLOR YELLOW; URINE GLUCOSE (UA) NEGATIVE (NEGATIVE); URINE KETONE TRACE (NEGATIVE); URINE LEUK ESTERASE NEGATIVE (NEGATIVE); URINE NITRITE NEGATIVE (NEGATIVE); URINE UROBILINOGEN NEGATIVE mg/dL (0.2-1.0)
[2018-08-09 00:51] LABS: URINE PROTEIN 1+ (NEGATIVE)
[2018-08-09 00:54] LABS: URINE BACTERIA FEW /hpf (NONE SEEN); URINE MUCUS MANY; YEAST MODERATE
[2018-08-09] MEDS: chlordiazePOXIDE HCL 25 MG CAPSULE PO SCH ×4 (06:57→23:00)
--- NOTE | 2018-08-09 08:47 | CONSULT ---
[facility] Psychiatric Consult - Data Date of interview: 08/09/18 Admission source: [facility] Identifying data: This is 48 years old male, single father of two, living with family, unemployed, with psychiatric hospitalization history, history of Schizophrenia/Bipolar Disorder, with long history of Alcohol, Cocaine and Opioids, Nicotine dependence, is reporting withdrawal symptoms and seeking detox. Substance Abuse History: Urine Drug Screen Results: MARION-Cocaine, OPI-Opiates. - Smoking Cessation. Smoking history: Current every day smoker. Have you smoked in the past 12 months: Yes. Aproximately how many cigarettes per day: 20. Hx Chewing Tobacco Use: No. Initiated information on smoking cessation: Yes. 'Breaking Loose' booklet given: 08/08/18. - Substance & Tx. History. Hx Alcohol Use: Yes. Hx Substance Use: Yes. Substance Use Type: Alcohol, Cocaine. Hx Substance Use Treatment: Yes (detox, rehab, residential). - Substances Abused. Alcohol. Route: Oral. Frequency: Daily. Amount used: 10/12OZ CANS. Age of first use: 17. Date of Last Use: 08/08/18. Cocaine. Route: Smoking. Frequency: Daily. Amount used: 2-3 GRAMS. Age of first use: 24. Date of Last Use: 08/07/18 Medical History: Hyperlipidemia, s/p Left forearm, and L. ankle fracture Psychiatric History: Patient reports Bipolar Disorder/Schizophrenia history, reports most recent psychiatric admission at [facility] for safety. Current medications are: Haldol 5mg poqd. Seroquel 50mg po bid. Trazodone 60mg po qhs. Denies suicidal, homicidal history. Physical/Sexual Abuse/Trauma History: Denies Additional Comment: Urine Drug Screen Results: MARION-Cocaine, OPI-Opiates Mental Status Exam - Mental Status Exam Alert and Oriented to: Person Cognitive Function: Fair Patient Appearance: Unkempt Mood: Sad Affect: Flat Patient Behavior: Sedated Speech Pattern: Delayed Voice Loudness: Mildly Soft/Quiet Thought Process: Circumstantial Thought Disorder: Being Controlled Hallucinations: Denies Suicidal Ideation: Denies Homicidal Ideation: Denies Insight/Judgement: Fair Sleep: Difficulty falling asleep Appetite: Fair Muscle strength/Tone: Mild Hypotonicity Gait/Station: Deferred Additional Comments: Haldol 5mg poqd. Seroquel 50mg po bid. Trazodone 60mg po qhs Psychiatric Findings - Problem List ([place] 1, 2,3) (1) Alcohol dependence with uncomplicated withdrawal Current Visit: Yes Status: Acute (2) Opioid dependence with withdrawal Current Visit: No Status: Acute (3) Substance induced mood disorder Current Visit: No Status: Acute (4) Substance-induced sleep disorder Current Visit: No Status: Acute (5) Cocaine dependence Current Visit: No Status: Chronic Qualifiers: Substance use status: uncomplicated Qualified Code(s): F14.20 - Cocaine dependence, uncomplicated (6) Hyperlipidemia Current Visit: No Status: Chronic (7) Nicotine dependence Current Visit: No Status: Chronic Qualifiers: Nicotine product type: cigarettes Substance use status: uncomplicated Qualified Code(s): F17.210 - Nicotine dependence, cigarettes, uncomplicated - Initial Treatment Plan Initial Treatment Plan: Haldol 5mg poqd. Seroquel 50mg po bid. Trazodone 60mg po qhs
--- NOTE | 2018-08-09 10:02 | EKG ---
Test Reason : Blood Pressure : / mmHG Vent. Rate : 096 BPM Atrial Rate : 096 BPM P-R Int : 154 ms QRS Dur : 084 ms QT Int : 340 ms P-R-T Axes : 080 073 071 degrees QTc Int : 429 ms NORMAL SINUS RHYTHM MODERATE VOLTAGE CRITERIA FOR LVH, MAY BE NORMAL VARIANT BORDERLINE ECG WHEN COMPARED WITH ECG OF 12-DEC-2017 12:38, VENT. RATE HAS INCREASED BY 34 BPM Confirmed by JAN VALLE, KAL ([id number]) on 08/09/2018 10:02:23 AM Referred By: Confirmed By:KAL MONTOYA MD
[2018-08-09 10:30] LABS: HEMATOCRIT 41.5 % (35.4-49); HEMOGLOBIN 13.6 GM/dL (11.7-16.9); MCH 30.1 pg (25.7-33.7); MCHC 32.7 g/dl (32.0-35.9); MEAN CELL VOLUME 92.1 fl (80-96); MEAN PLT VOLUME 8.7 fl (7.5-11.1); PLATELET COUNT 186 K/MM3 (134-434); RBC 4.51 M/mm3 (4.00-5.60); RDW 14.1 % (11.9-15.9); WHITE BLOOD COUNT 3.4 K/mm3 (4.0-10.0)
[2018-08-09 11:11] LABS: CHLORIDE 107 mmol/L (98-107); SODIUM 144 mmol/L (136-145)
[2018-08-09] MEDS: QUEtiapine FUMARATE 50 MG TABLET PO SCH ×2 (11:11→23:00)
[2018-08-09] MEDS: HALOPERIDOL 5 MG TABLET (FP) PO SCH (11:11)
[2018-08-09] MEDS: PRENATAL VITAMINS W/ FOLIC ACID TABLET (FP) PO SCH (11:11)
[2018-08-09] MEDS: NICOTINE 21 MG/24 HOURS TOPICAL PATCH TD SCH ×2 (11:12)
[2018-08-09 11:56] LABS: ALBUMIN 3.4 g/dl (3.4-5.0); ALK PHOS 73 U/L (45-117); ANION GAP 11 MMOL/L (8-16); BILIRUBIN,TOTAL 0.4 mg/dL (0.2-1.0); BLOOD UREA NITROGEN 16 mg/dL (7-18); CALCIUM 8.7 mg/dL (8.5-10.1); CO2 26 mmol/L (21-32); CREATININE 1.1 mg/dL (0.55-1.3); GLUCOSE,RANDOM 100 mg/dL (74-106); SGOT/AST 48 U/L (15-37); SGPT/ALT 23 U/L (13-61)
--- NOTE | 2018-08-09 15:58 | PN ---
[facility] CIWA - CIWA Score Nausea/Vomitin-Mild Nausea/No Vomiting Muscle Tremors: 4-Moderate,w/Arms Extend Anxiety: 4-Mod. Anxious/Guarded Agitation: 3 Paroxysmal Sweats: 1-Minimal Palms Moist Orientation: 1-Uncertain about Date Tacttile Disturbances: 0-None Auditory Disturbances: 0-None Visual Disturbances: 0-None Headache: 0-None Present CIWA-Ar Total Score: 14 S Progress Note (SOAP) Subjective: tremor sweat restlessness irritable Objective: 08/09/18 15:55 Vital Signs Temperature 97.9 F 08/09/18 13:17 Pulse Rate 88 08/09/18 13:17 Respiratory Rate 18 08/09/18 13:17 Blood Pressure 114/66 08/09/18 13:17 O2 Sat by Pulse Oximetry (%) Laboratory Last Values WBC 3.4 K/mm3 (4.0-10.0) L 08/09/18 08:00 RBC 4.51 M/mm3 (4.00-5.60) 08/09/18 08:00 Hgb 13.6 GM/dL (11.7-16.9) 08/09/18 08:00 Hct 41.5 % (35.4-49) 08/09/18 08:00 MCV 92.1 fl (80-96) 08/09/18 08:00 MCH 30.1 pg (25.7-33.7) 08/09/18 08:00 MCHC 32.7 g/dl (32.0-35.9) 08/09/18 08:00 RDW 14.1 % (11.9-15.9) 08/09/18 08:00 Plt Count 186 K/MM3 (134-434) 08/09/18 08:00 MPV 8.7 fl (7.5-11.1) 08/09/18 08:00 Sodium 144 mmol/L (136-145) 08/09/18 08:00 Potassium 4.0 mmol/L (3.5-5.1) 08/09/18 08:00 Chloride 107 mmol/L (98-107) 08/09/18 08:00 Carbon Dioxide 26 mmol/L (21-32) 08/09/18 08:00 Anion Gap 11 MMOL/L (8-16) 08/09/18 08:00 BUN 16 mg/dL (7-18) 08/09/18 08:00 Creatinine 1.1 mg/dL (0.55-1.3) 08/09/18 08:00 Creat Clearance w eGFR > 60 (>60) 08/09/18 08:00 Random Glucose 100 mg/dL (74-106) 08/09/18 08:00 Calcium 8.7 mg/dL (8.5-10.1) 08/09/18 08:00 Total Bilirubin 0.4 mg/dL (0.2-1.0) 08/09/18 08:00 AST 48 U/L (15-37) H 08/09/18 08:00 ALT 23 U/L (13-61) 08/09/18 08:00 Alkaline Phosphatase 73 U/L (45-117) 08/09/18 08:00 Total Protein 7.0 g/dl (6.4-8.2) 08/09/18 08:00 Albumin 3.4 g/dl (3.4-5.0) 08/09/18 08:00 Urine Color Yellow 08/08/18 23:30 Urine Appearance Turbid 08/08/18 23:30 Urine pH 5.0 (5.0-8.0) 08/08/18 23:30 Ur Specific [place] 1.027 (1.001-1.035) 08/08/18 23:30 Urine Protein 1+ (NEGATIVE) H 08/08/18 23:30 Urine Glucose (UA) Negative (NEGATIVE) 08/08/18 23:30 Urine Ketones Trace (NEGATIVE) H 08/08/18 23:30 Urine Blood 1+ (NEGATIVE) H 08/08/18 23:30 Urine Nitrite Negative (NEGATIVE) 08/08/18 23:30 Urine Bilirubin Negative (<2.0 mg/dL) 08/08/18 23:30 Urine Urobilinogen Negative mg/dL (0.2-1.0) 08/08/18 23:30 Ur Leukocyte Esterase Negative (NEGATIVE) 08/08/18 23:30 Urine WBC (Auto) 17 /hpf (3-5) 08/08/18 23:30 Urine RBC (Auto) 4 /hpf (0-3) 08/08/18 23:30 Urine Bacteria Few /hpf (NONE SEEN) 08/08/18 23:30 Urine Mucus Many 08/08/18 23:30 Urine Yeast Moderate 08/08/18 23:30 RPR Titer Nonreactive (NONREACTIVE) 08/09/18 08:00 HIV 1&2 Antibody Screen Negative 08/09/18 08:00 HIV P24 Antigen Negative 08/09/18 08:00 lab noted Assessment: 08/09/18 15:58 withdrawal sx Plan: continue detox
[2018-08-09] MEDS: THIAMINE HCL 100 MG TABLET (FP) PO SCH (22:59)
[2018-08-09] MEDS: traZODone HCL 50 MG TABLET (FP) PO SCH (22:59)
[2018-08-10] MEDS: chlordiazePOXIDE HCL 25 MG CAPSULE PO SCH ×2 (07:36→10:24)
--- NOTE | 2018-08-10 10:21 | PN ---
S CIWA - CIWA Score Nausea/Vomitin-Mild Nausea/No Vomiting Muscle Tremors: 4-Moderate,w/Arms Extend Anxiety: 3 Agitation: 3 Paroxysmal Sweats: 1-Minimal Palms Moist Orientation: 0-Oriented Tacttile Disturbances: 1-Very Mild Itch/Numbness Auditory Disturbances: 0-None Visual Disturbances: 0-None Headache: 0-None Present CIWA-Ar Total Score: 13 BHS Progress Note (SOAP) Subjective: tremor sweat restlessness trouble sleep at night Objective: 08/10/18 10:23 Vital Signs Temperature 98.4 F 08/10/18 09:52 Pulse Rate 75 08/10/18 09:52 Respiratory Rate 18 08/10/18 09:52 Blood Pressure 105/64 08/10/18 09:52 O2 Sat by Pulse Oximetry (%) Laboratory Last Values WBC 3.4 K/mm3 (4.0-10.0) L 08/09/18 08:00 RBC 4.51 M/mm3 (4.00-5.60) 08/09/18 08:00 Hgb 13.6 GM/dL (11.7-16.9) 08/09/18 08:00 Hct 41.5 % (35.4-49) 08/09/18 08:00 MCV 92.1 fl (80-96) 08/09/18 08:00 MCH 30.1 pg (25.7-33.7) 08/09/18 08:00 MCHC 32.7 g/dl (32.0-35.9) 08/09/18 08:00 RDW 14.1 % (11.9-15.9) 08/09/18 08:00 Plt Count 186 K/MM3 (134-434) 08/09/18 08:00 MPV 8.7 fl (7.5-11.1) 08/09/18 08:00 Sodium 144 mmol/L (136-145) 08/09/18 08:00 Potassium 4.0 mmol/L (3.5-5.1) 08/09/18 08:00 Chloride 107 mmol/L (98-107) 08/09/18 08:00 Carbon Dioxide 26 mmol/L (21-32) 08/09/18 08:00 Anion Gap 11 MMOL/L (8-16) 08/09/18 08:00 BUN 16 mg/dL (7-18) 08/09/18 08:00 Creatinine 1.1 mg/dL (0.55-1.3) 08/09/18 08:00 Creat Clearance w eGFR > 60 (>60) 08/09/18 08:00 Random Glucose 100 mg/dL (74-106) 08/09/18 08:00 Calcium 8.7 mg/dL (8.5-10.1) 08/09/18 08:00 Total Bilirubin 0.4 mg/dL (0.2-1.0) 08/09/18 08:00 AST 48 U/L (15-37) H 08/09/18 08:00 ALT 23 U/L (13-61) 08/09/18 08:00 Alkaline Phosphatase 73 U/L (45-117) 08/09/18 08:00 Total Protein 7.0 g/dl (6.4-8.2) 08/09/18 08:00 Albumin 3.4 g/dl (3.4-5.0) 08/09/18 08:00 Urine Color Yellow 08/08/18 23:30 Urine Appearance Turbid 08/08/18 23:30 Urine pH 5.0 (5.0-8.0) 08/08/18 23:30 Ur Specific [place] 1.027 (1.001-1.035) 08/08/18 23:30 Urine Protein 1+ (NEGATIVE) H 08/08/18 23:30 Urine Glucose (UA) Negative (NEGATIVE) 08/08/18 23:30 Urine Ketones Trace (NEGATIVE) H 08/08/18 23:30 Urine Blood 1+ (NEGATIVE) H 08/08/18 23:30 Urine Nitrite Negative (NEGATIVE) 08/08/18 23:30 Urine Bilirubin Negative (<2.0 mg/dL) 08/08/18 23:30 Urine Urobilinogen Negative mg/dL (0.2-1.0) 08/08/18 23:30 Ur Leukocyte Esterase Negative (NEGATIVE) 08/08/18 23:30 Urine WBC (Auto) 17 /hpf (3-5) 08/08/18 23:30 Urine RBC (Auto) 4 /hpf (0-3) 08/08/18 23:30 Urine Bacteria Few /hpf (NONE SEEN) 08/08/18 23:30 Urine Mucus Many 08/08/18 23:30 Urine Yeast Moderate 08/08/18 23:30 RPR Titer Nonreactive (NONREACTIVE) 08/09/18 08:00 HIV 1&2 Antibody Screen Negative 08/09/18 08:00 HIV P24 Antigen Negative 08/09/18 08:00 lab noted Assessment: 08/10/18 10:24 withdrawal sx Plan: continue detox
[2018-08-10] MEDS: QUEtiapine FUMARATE 50 MG TABLET PO SCH ×2 (10:24→22:31)
[2018-08-10] MEDS: PRENATAL VITAMINS W/ FOLIC ACID TABLET (FP) PO SCH (10:24)
[2018-08-10] MEDS: HALOPERIDOL 5 MG TABLET (FP) PO SCH (10:24)
[2018-08-10] MEDS: NICOTINE 21 MG/24 HOURS TOPICAL PATCH TD SCH (10:24)
[2018-08-10] MEDS: IBUPROFEN 400 MG TABLET (FP) PO PRN (11:16)
[2018-08-10] MEDS: chlordiazePOXIDE 5 MG CAPSULE PO SCH ×2 (18:12→22:31)
[2018-08-10] MEDS: THIAMINE HCL 100 MG TABLET (FP) PO SCH (22:31)
[2018-08-10] MEDS: traZODone HCL 50 MG TABLET (FP) PO SCH (22:31)
[2018-08-11] MEDS: chlordiazePOXIDE 5 MG CAPSULE PO SCH ×2 (06:33→10:55)
--- NOTE | 2018-08-11 09:46 | PN ---
BHS Progress Note (SOAP) Subjective: nausea, sweats Objective: 08/11/18 09:45 Vital Signs Temperature 98.1 F 08/11/18 09:37 Pulse Rate 80 08/11/18 09:37 Respiratory Rate 18 08/11/18 09:37 Blood Pressure 138/78 08/11/18 09:37 O2 Sat by Pulse Oximetry (%) Laboratory Tests 08/08/18 08/09/18 08/09/18 23:30 08:00 08:00 WBC 3.4 L RBC 4.51 Hgb 13.6 Hct 41.5 MCV 92.1 MCH 30.1 MCHC 32.7 RDW 14.1 Plt Count 186 MPV 8.7 Sodium Potassium Chloride Carbon Dioxide Anion Gap BUN Creatinine Creat Clearance w eGFR Random Glucose Calcium Total Bilirubin AST ALT Alkaline Phosphatase Total Protein Albumin Urine Color Yellow Urine Appearance Turbid Urine pH 5.0 Ur Specific [place] 1.027 Urine Protein 1+ H Urine Glucose (UA) Negative Urine Ketones Trace H Urine Blood 1+ H Urine Nitrite Negative Urine Bilirubin Negative Urine Urobilinogen Negative Ur Leukocyte Esterase Negative Urine WBC (Auto) 17 Urine RBC (Auto) 4 Urine Bacteria Few Urine Mucus Many Urine Yeast Moderate RPR Titer HIV 1&2 Antibody Screen Negative HIV P24 Antigen Negative 08/09/18 08/09/18 08:00 08:00 WBC RBC Hgb Hct MCV MCH MCHC RDW Plt Count MPV Sodium 144 Potassium 4.0 Chloride 107 Carbon Dioxide 26 Anion Gap 11 BUN 16 Creatinine 1.1 Creat Clearance w eGFR > 60 Random Glucose 100 Calcium 8.7 Total Bilirubin 0.4 AST 48 H ALT 23 Alkaline Phosphatase 73 Total Protein 7.0 Albumin 3.4 Urine Color Urine Appearance Urine pH Ur Specific [place] Urine Protein Urine Glucose (UA) Urine Ketones Urine Blood Urine Nitrite Urine Bilirubin Urine Urobilinogen Ur Leukocyte Esterase Urine WBC (Auto) Urine RBC (Auto) Urine Bacteria Urine Mucus Urine Yeast RPR Titer Nonreactive HIV 1&2 Antibody Screen HIV P24 Antigen pt aox3 lying in bed in nad with left leg cast 08/11/18 10:08 Assessment: 08/11/18 10:08 withdrawal sx's left leg fx Plan: cont. detox increase fluids use crutches for ambulation
[2018-08-11] MEDS: PRENATAL VITAMINS W/ FOLIC ACID TABLET (FP) PO SCH (10:54)
[2018-08-11] MEDS: HALOPERIDOL 5 MG TABLET (FP) PO SCH (10:54)
[2018-08-11] MEDS: QUEtiapine FUMARATE 50 MG TABLET PO SCH ×2 (10:54→22:59)
[2018-08-11] MEDS: NICOTINE 21 MG/24 HOURS TOPICAL PATCH TD SCH ×2 (10:54→10:58)
[2018-08-11] MEDS: IBUPROFEN 400 MG TABLET (FP) PO PRN (11:00)
[2018-08-11] MEDS: chlordiazePOXIDE HCL 10 MG CAPSULE PO SCH ×2 (17:49→22:59)
[2018-08-11] MEDS: THIAMINE HCL 100 MG TABLET (FP) PO SCH (22:59)
[2018-08-11] MEDS: traZODone HCL 50 MG TABLET (FP) PO SCH (22:59)
[2018-08-12] MEDS: chlordiazePOXIDE HCL 10 MG CAPSULE PO SCH ×2 (06:16→10:40)
[2018-08-12 10:00] VITALS: BP 125/84; PULSE 98; TEMP 98
[2018-08-12] MEDS: PRENATAL VITAMINS W/ FOLIC ACID TABLET (FP) PO SCH (10:39)
[2018-08-12] MEDS: QUEtiapine FUMARATE 50 MG TABLET PO SCH (10:39)
[2018-08-12] MEDS: HALOPERIDOL 5 MG TABLET (FP) PO SCH (10:39)
[2018-08-12] MEDS: NICOTINE 21 MG/24 HOURS TOPICAL PATCH TD SCH (10:39)
--- NOTE | 2018-08-12 14:20 | DS ---
[facility] Detox Discharge Summary Admission Date: 08/08/18 Discharge Date: 08/12/18 - History Present History: Alcohol Dependence Additional Comments: 48 years old male admitted on 08/08 18 for alcohol withdrawal sx completed alcohol detox regimen tolerated well DENIES ALCOHOL WITHDRAWAL SX ALERT ORIENTED X 3 NO ACUTE DISTRESS AFTERCARE REVELATION AMBULATE WITH WHEELCHAIR AND CRUTCHES - Physical Exam Results Vital Signs: Vital Signs Temperature 98 F 08/12/18 09:59 Pulse Rate 98 H 08/12/18 09:59 Respiratory Rate 18 08/12/18 09:59 Blood Pressure 125/84 08/12/18 09:59 O2 Sat by Pulse Oximetry (%) Pertinent Admission Physical Exam Findings: ALCOHOL WITHDRAWAL SX Vital Signs Temperature 98 F 08/12/18 09:59 Pulse Rate 98 H 08/12/18 09:59 Respiratory Rate 18 08/12/18 09:59 Blood Pressure 125/84 08/12/18 09:59 O2 Sat by Pulse Oximetry (%) Laboratory Last Values WBC 3.4 K/mm3 (4.0-10.0) L 08/09/18 08:00 RBC 4.51 M/mm3 (4.00-5.60) 08/09/18 08:00 Hgb 13.6 GM/dL (11.7-16.9) 08/09/18 08:00 Hct 41.5 % (35.4-49) 08/09/18 08:00 MCV 92.1 fl (80-96) 08/09/18 08:00 MCH 30.1 pg (25.7-33.7) 08/09/18 08:00 MCHC 32.7 g/dl (32.0-35.9) 08/09/18 08:00 RDW 14.1 % (11.9-15.9) 08/09/18 08:00 Plt Count 186 K/MM3 (134-434) 08/09/18 08:00 MPV 8.7 fl (7.5-11.1) 08/09/18 08:00 Sodium 144 mmol/L (136-145) 08/09/18 08:00 Potassium 4.0 mmol/L (3.5-5.1) 08/09/18 08:00 Chloride 107 mmol/L (98-107) 08/09/18 08:00 Carbon Dioxide 26 mmol/L (21-32) 08/09/18 08:00 Anion Gap 11 MMOL/L (8-16) 08/09/18 08:00 BUN 16 mg/dL (7-18) 08/09/18 08:00 Creatinine 1.1 mg/dL (0.55-1.3) 08/09/18 08:00 Creat Clearance w eGFR > 60 (>60) 08/09/18 08:00 Random Glucose 100 mg/dL (74-106) 08/09/18 08:00 Calcium 8.7 mg/dL (8.5-10.1) 08/09/18 08:00 Total Bilirubin 0.4 mg/dL (0.2-1.0) 08/09/18 08:00 AST 48 U/L (15-37) H 08/09/18 08:00 ALT 23 U/L (13-61) 08/09/18 08:00 Alkaline Phosphatase 73 U/L (45-117) 08/09/18 08:00 Total Protein 7.0 g/dl (6.4-8.2) 08/09/18 08:00 Albumin 3.4 g/dl (3.4-5.0) 08/09/18 08:00 Urine Color Yellow 08/08/18 23:30 Urine Appearance Turbid 08/08/18 23:30 Urine pH 5.0 (5.0-8.0) 08/08/18 23:30 Ur Specific [place] 1.027 (1.001-1.035) 08/08/18 23:30 Urine Protein 1+ (NEGATIVE) H 08/08/18 23:30 Urine Glucose (UA) Negative (NEGATIVE) 08/08/18 23:30 Urine Ketones Trace (NEGATIVE) H 08/08/18 23:30 Urine Blood 1+ (NEGATIVE) H 08/08/18 23:30 Urine Nitrite Negative (NEGATIVE) 08/08/18 23:30 Urine Bilirubin Negative (<2.0 mg/dL) 08/08/18 23:30 Urine Urobilinogen Negative mg/dL (0.2-1.0) 08/08/18 23:30 Ur Leukocyte Esterase Negative (NEGATIVE) 08/08/18 23:30 Urine WBC (Auto) 17 /hpf (3-5) 08/08/18 23:30 Urine RBC (Auto) 4 /hpf (0-3) 08/08/18 23:30 Urine Bacteria Few /hpf (NONE SEEN) 08/08/18 23:30 Urine Mucus Many 08/08/18 23:30 Urine Yeast Moderate 08/08/18 23:30 RPR Titer Nonreactive (NONREACTIVE) 08/09/18 08:00 HIV 1&2 Antibody Screen Negative 08/09/18 08:00 HIV P24 Antigen Negative 08/09/18 08:00 LAB NOTED - Treatment Hospital Course: Detox Protocol Followed, Detoxed Safely, Responded well, Discharged Condition Good, Rehab Referral Accepted Patient has Accepted a Rehab Referral to: [facility] - Medication Discharge Medications: Ambulatory Orders Haloperidol [Haldol -] 5 mg PO DAILY 08/08/18 Haloperidol [Haldol -] 5 mg PO DAILY #30 tablet 08/09/18 Quetiapine Fumarate [Seroquel -] 50 mg PO BID #60 tablet 08/09/18 traZODone HCL [Trazodone HCl] 50 mg PO HS #30 tablet 08/09/18 - Diagnosis (1) Alcohol dependence with uncomplicated withdrawal Status: Acute (2) Hyperlipidemia Status: Chronic Qualifiers: Hyperlipidemia type: pure hypercholesterolemia Qualified Code(s): E78.00 - Pure hypercholesterolemia, unspecified; E78.0 - Pure hypercholesterolemia (3) Nicotine dependence Status: Acute Qualifiers: Nicotine product type: cigarettes Substance use status: in withdrawal Qualified Code(s): F17.213 - Nicotine dependence, cigarettes, with withdrawal - AMA Did Patient Leave Against Medical Advice: No
== END 2018-08-12 12:00 | disposition other institution (70) | DRG 773 ==
LOC: YASAS 10:04 → Y6N 12:57
PROC: HZ2ZZZZ Detoxification Services for Substance Abuse Treatment (ICD-10-PCS; principal; 2018-08-08)
DX: F11.23 Opioid dependence with withdrawal (principal); F10.230 Alcohol dependence with withdrawal, uncomplicated; F14.20 Cocaine dependence, uncomplicated; F17.213 Nicotine dependence, cigarettes, with withdrawal; F19.24 Other psychoactive substance dependence with psychoactive substance-induced mood disorder; F19.282 Other psychoactive substance dependence with psychoactive substance-induced sleep disorder; F31.9 Bipolar disorder, unspecified; F20.9 Schizophrenia, unspecified; E78.00 Pure hypercholesterolemia, unspecified; Z97.8 Presence of other specified devices; Z87.81 Personal history of (healed) traumatic fracture
CPT/HCPCS: 36415; 80053; 81003; 81015; 85027; 86593; 87389; 93005; 93010

== ENCOUNTER 2018-08-12 12:19 | Inpatient (IN) | payer OTHER ==
[2018-08-12] MEDS ORDERED: MENTHOL/PHENOL 1 EACH UD MM PRN (14:22)
[2018-08-12] MEDS ORDERED: MAGNESIUM CITRATE 300 ML BOTTLE PO PRN (14:22)
[2018-08-12] MEDS ORDERED: ACETAMINOPHEN 325 MG TABLET (FP) PO PRN (14:22)
[2018-08-12] MEDS ORDERED: guaiFENesin/D-METHORPHAN HB 10 ML UNIT-DOSE CUPS PO PRN (14:22)
[2018-08-12] MEDS ORDERED: MAG HYDROX/AL HYDROX/SIMETH 30 ML UNIT-DOSE CUP PO PRN (14:22)
[2018-08-12] MEDS ORDERED: P-EPHED 60MG/TRIPROLIDI 2.5MG TABLET PO PRN (14:22)
[2018-08-12] MEDS ORDERED: MAGNESIUM HYDROX 2400MG/30ML ORAL SUSPENSION 30 ML CUP PO PRN (14:22)
[2018-08-12] MEDS ORDERED: NICOTINE POLACRILEX 2 MG GUM BUC PRN (14:22)
[2018-08-12] MEDS ORDERED: NICOTINE 14 MG/24 HOURS TOPICAL PATCH TD PRN (14:22)
--- NOTE | 2018-08-12 14:22 | HP ---
[facility] Re[facility] Assess/Revision - Admission History Admitted to Rehab from: [facility] Date of Admission to Rehab: 08/12/18 - Findings Detox History & Physical reviewed: Yes Concur with findings: Yes Comments/Additional Findings: TRANSFERRED FROM DETOX TO REHAB ADMISSION PER PROTOCOL Inpatient Rehab Admission - Initial Determination Are CD services needed?: Yes Free of communicable disease: Yes Not in need of hospitalization: Yes - Rehab Admission Criteria Previous failed treatment: Yes Poor recovery environment: Yes Comorbidities: Yes Lacks judgement: No Patient is meeting Inpatient Rehab admission criteria:: Yes
--- NOTE | 2018-08-12 19:54 | PN ---
[facility] Progress Note Note: Psychiatric nurse practitioner application programmer analyst note: Call received by RN requesting patient's evening medications. Chart reviewed. Dr. Machuca's note read and appreciated. Will order Haldol 5mg daily + Seroquel 50mg qhs + Trazodone 50mg.
[2018-08-12] MEDS: QUEtiapine FUMARATE 50 MG TABLET PO SCH (21:40)
[2018-08-12] MEDS: traZODone HCL 50 MG TABLET (FP) PO SCH (21:40)
[2018-08-12] MEDS: THIAMINE HCL 100 MG TABLET (FP) PO SCH (21:40)
--- NOTE | 2018-08-13 06:37 | HP ---
Psychiatrist Admission - Data Date of interview: 08/13/18 Admission source: 6N Identifying data: This is the first [facility] admission for this 48 years old single Black male, unemployed with no source of income, homeless Medical History: Significant for dyslipidemia and history of orthosurgery for fracture left forearm & recent fracture left ankle(cast in place) . Smokes cigarettes 1ppd Psychiatric History: Reports that he was diagnosed with Bipolar/Schizophrenia in 1996 and started on Seroquel. Reports one previous psychiatric admission to [facility] for 2 weeks in 2004 or 2005 for suicidal ideations. Reports non-compliance to OPD care and medications. Told sql report writer that he last received [place] [facility] [place] and took medications in May 2018. He was on Haldol 5 mg po daily, Seroquel 50 mg po BID, Trazadone 50 mg po HS and Buspar. He does not recall dosage of Buspar. He was seen by Dr Marie on 08/09/18 while in detox and he was restarted on Haldol 5 mg po daily, Seroquel 50 mg po BID and Trazadone 50 mg po HS. He is currently on Haldol 5 mg po daily, Seroquel 50 mg po HS and Trazadne 50 mg po HS. Requests to continue medications as last ordered. Denies previous suicidal attempt. At present, reports feeling depressed and sleeping poorly Physical/Sexual Abuse/Trauma History: Denies history of emotional, physical or sexual abuse as well as DV relationship. No service Additional Comment: Reports history of 2 previous felony comvictions. eports being currently on parole till Jul 14, 2019 Vital Signs: Vital Signs - 24 hr 08/13/18 08/13/18 00:30 03:30 Respiratory 16 16 Rate Allergies/Adverse Reactions: Allergies Allergy/AdvReac Type Severity Reaction Status Date / Time No Known Allergies Allergy Verified 08/08/18 11:55 Date of last physical exam: 08/08/18 Concur with the findings of this exam: Yes - Substance Abuse/Tx History Hx Alcohol Use: Yes Hx Substance Use: Yes Substance Use Type: Alcohol (Started drinking alcohol at age 17, [id number] 12oz of beer daily. Last drank on 08/08/18), Cocaine (Started smoking crack cocaine at age 24, consumes2-3 grams daily. Last smked on 08/07/18) Hx Substance Use Treatment: Yes (7 previous inpt detox & 2 inpt rehab admissions ) Mental Status Exam - Mental Status Exam Alert and Oriented to: Time, Place, Person Cognitive Function: Fair Patient Appearance: Well Groomed Mood: Depressed Affect: Appropriate Patient Behavior: Cooperative Speech Pattern: Clear Voice Loudness: Normal, Limited Variation Thought Process: Intact, Goal Oriented Hallucinations: Denies Suicidal Ideation: Denies Homicidal Ideation: Denies Insight/Judgement: Fair Sleep: Poorly Appetite: Fair Muscle strength/Tone: Normal Gait/Station: Other (Uses crutches as ambulatory aid) Psychiatric Findings - Problem List ([place] 1, 2,3) (1) Alcohol dependence Current Visit: Yes Status: Acute (2) Cocaine dependence Current Visit: No Status: Acute Qualifiers: (3) Nicotine dependence Current Visit: No Status: Chronic Qualifiers: (4) Schizoaffective disorder Current Visit: Yes Status: Chronic (5) Substance induced mood disorder Current Visit: No Status: Acute (6) Substance-induced sleep disorder Current Visit: No Status: Acute (7) Hyperlipidemia Current Visit: No Status: Chronic Qualifiers: Hyperlipidemia type: pure hypercholesterolemia Qualified Code(s): E78.00 - Pure hypercholesterolemia, unspecified; E78.0 - Pure hypercholesterolemia (8) Cast in place on lower extremity Current Visit: No Status: Acute - Initial Treatment Plan Initial Treatment Plan: 1) Continue Haldol 5 mg po daily. 2) Start Seroquel 100 mg po HS. 3) Monitor progress
[2018-08-13] MEDS: PRENATAL VITAMINS W/ FOLIC ACID TABLET (FP) PO SCH (09:29)
[2018-08-13] MEDS: HALOPERIDOL 5 MG TABLET (FP) PO SCH (09:29)
[2018-08-13] MEDS: traZODone HCL 50 MG TABLET (FP) PO SCH (22:29)
[2018-08-13] MEDS: QUEtiapine FUMARATE 50 MG TABLET PO SCH (22:30)
[2018-08-13] MEDS: THIAMINE HCL 100 MG TABLET (FP) PO SCH (22:30)
[2018-08-14] MEDS: HALOPERIDOL 5 MG TABLET (FP) PO SCH (09:54)
[2018-08-14] MEDS: PRENATAL VITAMINS W/ FOLIC ACID TABLET (FP) PO SCH (09:54)
[2018-08-14] MEDS: IBUPROFEN 400 MG TABLET (FP) PO PRN (09:55)
[2018-08-14] MEDS: traZODone HCL 50 MG TABLET (FP) PO SCH (21:01)
[2018-08-14] MEDS: MELATONIN 5 MG TABLETS PO PRN (21:01)
[2018-08-14] MEDS: QUEtiapine FUMARATE 50 MG TABLET PO SCH (21:01)
[2018-08-14] MEDS: THIAMINE HCL 100 MG TABLET (FP) PO SCH (21:01)
[2018-08-15] MEDS: HALOPERIDOL 5 MG TABLET (FP) PO SCH (11:23)
[2018-08-15] MEDS: IBUPROFEN 400 MG TABLET (FP) PO PRN (11:23)
[2018-08-15] MEDS: PRENATAL VITAMINS W/ FOLIC ACID TABLET (FP) PO SCH (11:23)
[2018-08-15] MEDS: LOPERAMIDE HCL 2 MG CAPSULE PO PRN (12:48)
[2018-08-15] MEDS: traZODone HCL 50 MG TABLET (FP) PO SCH (21:05)
[2018-08-15] MEDS: THIAMINE HCL 100 MG TABLET (FP) PO SCH (21:05)
[2018-08-15] MEDS: QUEtiapine FUMARATE 50 MG TABLET PO SCH (21:05)
[2018-08-15] MEDS: MELATONIN 5 MG TABLETS PO PRN (21:05)
[2018-08-16] MEDS: LOPERAMIDE HCL 2 MG CAPSULE PO PRN (06:35)
[2018-08-16] MEDS: HALOPERIDOL 5 MG TABLET (FP) PO SCH (10:18)
[2018-08-16] MEDS: PRENATAL VITAMINS W/ FOLIC ACID TABLET (FP) PO SCH (10:18)
[2018-08-16] MEDS ORDERED: BACITRACIN 15 GM TUBE TOPICAL OINTMENT TP SCH (11:15)
[2018-08-16] MEDS: BACITRACIN 0.9 GM PACKET TP SCH ×2 (11:22→21:17)
--- NOTE | 2018-08-16 11:22 | PN ---
S Progress Note Note: REQUESTING LAB REVIEW FROM PREVIOUS LABS DRAWN IN DETOX.6 NORTH. LEFT ELBOW ABRASION WITH SCABS RELATED TO PAST FALL INJURY ON 08/06/18. CAST ON LEFT FOOT. UA:NOTED WBC 17 PLAN:BACITRACIN OINTMENT DIRECTED. CANE FOR AMBULATION PRN REPEAT UA TODAY
[2018-08-16 15:21] LABS: URINE APPEARANCE CLEAR; URINE BILIRUBIN NEGATIVE (<2.0 mg/dL); URINE COLOR YELLOW; URINE GLUCOSE (UA) NEGATIVE (NEGATIVE); URINE KETONE NEGATIVE (NEGATIVE); URINE LEUK ESTERASE NEGATIVE (NEGATIVE); URINE NITRITE NEGATIVE (NEGATIVE); URINE PROTEIN NEGATIVE (NEGATIVE); URINE UROBILINOGEN NEGATIVE mg/dL (0.2-1.0)
[2018-08-16] MEDS: MELATONIN 5 MG TABLETS PO PRN (21:17)
[2018-08-16] MEDS: traZODone HCL 50 MG TABLET (FP) PO SCH (21:17)
[2018-08-16] MEDS: QUEtiapine FUMARATE 50 MG TABLET PO SCH (21:17)
[2018-08-16] MEDS: THIAMINE HCL 100 MG TABLET (FP) PO SCH (21:18)
[2018-08-17] MEDS: HALOPERIDOL 5 MG TABLET (FP) PO SCH (10:33)
[2018-08-17] MEDS: PRENATAL VITAMINS W/ FOLIC ACID TABLET (FP) PO SCH (10:33)
[2018-08-17] MEDS: BACITRACIN 0.9 GM PACKET TP SCH ×2 (10:34→22:04)
[2018-08-17] MEDS: traZODone HCL 50 MG TABLET (FP) PO SCH (22:04)
[2018-08-17] MEDS: THIAMINE HCL 100 MG TABLET (FP) PO SCH (22:05)
[2018-08-17] MEDS: QUEtiapine FUMARATE 50 MG TABLET PO SCH (22:05)
[2018-08-17] MEDS: MELATONIN 5 MG TABLETS PO PRN (22:33)
[2018-08-18] MEDS: PRENATAL VITAMINS W/ FOLIC ACID TABLET (FP) PO SCH (10:38)
[2018-08-18] MEDS: HALOPERIDOL 5 MG TABLET (FP) PO SCH (10:38)
[2018-08-18] MEDS: BACITRACIN 0.9 GM PACKET TP SCH ×2 (10:38→21:06)
[2018-08-18] MEDS: THIAMINE HCL 100 MG TABLET (FP) PO SCH (21:06)
[2018-08-18] MEDS: QUEtiapine FUMARATE 50 MG TABLET PO SCH (21:06)
[2018-08-18] MEDS: traZODone HCL 50 MG TABLET (FP) PO SCH (21:06)
[2018-08-18] MEDS: MELATONIN 5 MG TABLETS PO PRN (21:07)
[2018-08-19] MEDS: BACITRACIN 0.9 GM PACKET TP SCH ×2 (09:29→21:22)
[2018-08-19] MEDS: LOPERAMIDE HCL 2 MG CAPSULE PO PRN (09:30)
[2018-08-19] MEDS: PRENATAL VITAMINS W/ FOLIC ACID TABLET (FP) PO SCH (09:30)
[2018-08-19] MEDS: HALOPERIDOL 5 MG TABLET (FP) PO SCH (09:30)
--- NOTE | 2018-08-19 11:14 | PN ---
[facility] Progress Note Note: PT C/O DIARRHEA, IMODIUM NOT EFFECTIVE. WANTS A CHANGE OF MED. Vital Signs 08/19/18 07:10 Respiratory 16 Rate Laboratory Tests 08/16/18 12:00 Urine Color Yellow Urine Appearance Clear Urine pH 5.0 Ur Specific [place] 1.026 Urine Protein Negative Urine Glucose (UA) Negative Urine Ketones Negative Urine Blood Negative Urine Nitrite Negative Urine Bilirubin Negative Urine Urobilinogen Negative Ur Leukocyte Esterase Negative REPEAT UA WNL PLAN:PEPTO BISMOL LIQUID DIRECTED D/C IMODIUM
[2018-08-19] MEDS: BISMUTH SUBSALICYLATE 262 MG/15 ML BTL PO PRN (14:45)
[2018-08-19] MEDS: THIAMINE HCL 100 MG TABLET (FP) PO SCH (21:22)
[2018-08-19] MEDS: traZODone HCL 50 MG TABLET (FP) PO SCH (21:22)
[2018-08-19] MEDS: QUEtiapine FUMARATE 50 MG TABLET PO SCH (21:22)
[2018-08-19] MEDS: MELATONIN 5 MG TABLETS PO PRN (21:22)
[2018-08-20] MEDS ORDERED: PT OWN MED DRAWER 7, Y5N ONE (08:59)
[2018-08-20] MEDS: HALOPERIDOL 5 MG TABLET (FP) PO SCH (10:33)
[2018-08-20] MEDS: BACITRACIN 0.9 GM PACKET TP SCH ×2 (10:33→21:07)
[2018-08-20] MEDS: PRENATAL VITAMINS W/ FOLIC ACID TABLET (FP) PO SCH (10:34)
[2018-08-20] MEDS: QUEtiapine FUMARATE 100 MG TABLET (FP) PO SCH (21:07)
[2018-08-20] MEDS: THIAMINE HCL 100 MG TABLET (FP) PO SCH (21:07)
[2018-08-21] MEDS ORDERED: PT OWN MED DRAWER 7, Y5N ONE (09:00)
[2018-08-21] MEDS: BACITRACIN 0.9 GM PACKET TP SCH ×2 (10:17→21:00)
[2018-08-21] MEDS: HALOPERIDOL 5 MG TABLET (FP) PO SCH (10:18)
[2018-08-21] MEDS: PRENATAL VITAMINS W/ FOLIC ACID TABLET (FP) PO SCH (10:18)
[2018-08-21] MEDS: MELATONIN 5 MG TABLETS PO PRN (21:00)
[2018-08-21] MEDS: THIAMINE HCL 100 MG TABLET (FP) PO SCH (21:00)
[2018-08-21] MEDS: QUEtiapine FUMARATE 100 MG TABLET (FP) PO SCH (21:00)
[2018-08-22] MEDS: BACITRACIN 0.9 GM PACKET TP SCH ×2 (10:22→21:05)
[2018-08-22] MEDS: PRENATAL VITAMINS W/ FOLIC ACID TABLET (FP) PO SCH (10:22)
[2018-08-22] MEDS: HALOPERIDOL 5 MG TABLET (FP) PO SCH (10:22)
[2018-08-22] MEDS: QUEtiapine FUMARATE 100 MG TABLET (FP) PO SCH (21:05)
[2018-08-22] MEDS: MELATONIN 5 MG TABLETS PO PRN (21:05)
[2018-08-22] MEDS: THIAMINE HCL 100 MG TABLET (FP) PO SCH (21:05)
[2018-08-23] MEDS: HALOPERIDOL 5 MG TABLET (FP) PO SCH (10:02)
[2018-08-23] MEDS: BACITRACIN 0.9 GM PACKET TP SCH ×2 (10:02→21:03)
[2018-08-23] MEDS: PRENATAL VITAMINS W/ FOLIC ACID TABLET (FP) PO SCH (10:02)
[2018-08-23] MEDS: THIAMINE HCL 100 MG TABLET (FP) PO SCH (21:03)
[2018-08-23] MEDS: QUEtiapine FUMARATE 100 MG TABLET (FP) PO SCH (21:03)
[2018-08-24] MEDS: BACITRACIN 0.9 GM PACKET TP SCH ×2 (10:05→21:10)
[2018-08-24] MEDS: PRENATAL VITAMINS W/ FOLIC ACID TABLET (FP) PO SCH (10:05)
[2018-08-24] MEDS: HALOPERIDOL 5 MG TABLET (FP) PO SCH (10:05)
--- NOTE | 2018-08-24 11:43 | PN ---
S Progress Note Note: C/O HEARTBURN GOING TO THE BACK. DENIES SOB, DIZZINESS, NAUSEA OR VOMITING. REPORTS LAST BM WAS YESTERDAY. ALERT O X 3. NAD. Vital Signs - 24 hr 08/24/18 08/24/18 08/24/18 00:30 03:30 07:07 Temperature 98.1 F Pulse Rate 96 H Respiratory 16 16 18 Rate Blood Pressure 110/73 08/24/18 11:12 Temperature Pulse Rate 84 Respiratory Rate Blood Pressure 110/66 CARDIAC;SI S2 RRR NO MURMUR ABDOMEN;SOFT, NT, BS+ IMPRESSION:DYSPEPSIA PLAN:MYLANTA PRN, FIRST DOSE NOW INCREASE PO FLUIDS TO FOLLOW UP IF SX WORSENS
[2018-08-24] MEDS: QUEtiapine FUMARATE 100 MG TABLET (FP) PO SCH (21:10)
[2018-08-24] MEDS: THIAMINE HCL 100 MG TABLET (FP) PO SCH (21:10)
[2018-08-25] MEDS ORDERED: PT OWN MED DRAWER 7, Y5N ONE ×4 (04:41→21:02)
[2018-08-25] MEDS: HALOPERIDOL 5 MG TABLET (FP) PO SCH (10:11)
[2018-08-25] MEDS: PRENATAL VITAMINS W/ FOLIC ACID TABLET (FP) PO SCH (10:11)
[2018-08-25] MEDS: BISMUTH SUBSALICYLATE 262 MG/15 ML BTL PO PRN ×2 (10:12→21:01)
[2018-08-25] MEDS: BACITRACIN 0.9 GM PACKET TP SCH ×2 (10:12→21:00)
[2018-08-25] MEDS: THIAMINE HCL 100 MG TABLET (FP) PO SCH (21:00)
[2018-08-25] MEDS: QUEtiapine FUMARATE 100 MG TABLET (FP) PO SCH (21:00)
[2018-08-26] MEDS: HALOPERIDOL 5 MG TABLET (FP) PO SCH (10:12)
[2018-08-26] MEDS: PRENATAL VITAMINS W/ FOLIC ACID TABLET (FP) PO SCH (10:12)
[2018-08-26] MEDS: BACITRACIN 0.9 GM PACKET TP SCH ×2 (10:12→21:10)
--- NOTE | 2018-08-26 13:44 | PN ---
Psychiatric Progress Note Vital Signs: Vital Signs Period Temp Pulse Resp BP Sys/Bennett Pulse Ox Last 24 Hr 98.1 F 103 18-20 120/72 Date of Session: 08/26/18 Chief Complaint:: Discharge Note HPI: Patient addressing Alcohol and Cocaine Dependence comorbid with Nicotine Dependence, Schizoaffective Disorder, Substance-Induced Mood Disorder and Substance-Induced Sleep Disorder ROS: HLD Current Medications: Active Medications Generic Name Dose Route Start Last Admin Trade Name Freq PRN Reason Stop Dose Admin Acetaminophen 650 mg 08/12/18 14:22 08/14/18 06:43 Tylenol - PO 650 mg Q4H PRN Administration FEVER Al Hydroxide/Mg Hydroxide 30 ml 08/12/18 14:22 08/24/18 11:08 Mylanta Oral Suspension - PO 30 ml Q6H PRN Administration DYSPEPSIA Bacitracin 0.9 gm 08/16/18 11:15 08/26/18 10:12 Bacitracin - TP Not Given BID AFSANEH Bismuth Subsalicylate 30 ml 08/19/18 10:58 08/25/18 21:01 Pepto-Bismol Liquid - PO 30 ml TID PRN Administration DIARRHEA Eucalyptus/Menthol/Phenol/Sorbitol 1 each 08/12/18 14:22 Cepastat Lozenge - MM Q4H PRN SORE THROAT Guaifenesin 10 ml 08/12/18 14:22 Robitussin Dm - PO Q6H PRN COUGH Haloperidol 5 mg 08/13/18 10:00 08/26/18 10:12 Haldol - PO 5 mg DAILY AFSANEH Administration Ibuprofen 400 mg 08/12/18 14:22 08/15/18 11:23 Motrin - PO 400 mg Q6H PRN Administration Pain Level 4-6 Magnesium Citrate 300 ml 08/12/18 14:22 Citroma - PO Q48H PRN CONSTIPATION Magnesium Hydroxide 30 ml 08/12/18 14:22 Milk Of Magnesia - PO DAILY PRN CONSTIPATION Melatonin 5 mg 08/12/18 22:00 08/22/18 21:05 Melatonin PO 5 mg HS PRN Administration INSOMNIA Nicotine 14 mg 08/12/18 14:22 Nicoderm Patch - TD DAILY PRN WITHDRAWAL(CONT SUBST) Nicotine Polacrilex 2 mg 08/12/18 14:22 Nicorette Gum - BUC Q2H PRN NICOTINE REPLACEMENT RX Multivit/Folic Acid/Iron 1 tab 08/13/18 10:00 08/26/18 10:12 Vitamins (Sjr) - PO 1 tab DAILY AFSANEH Administration Pseudoephedrine/Triprolidine 1 combo 08/12/18 14:22 Actifed - PO TID PRN NASAL CONGESTION Quetiapine Fumarate 100 mg 08/20/18 22:00 08/25/18 21:00 Seroquel - PO 100 mg HS AFSANEH Administration Thiamine HCl 100 mg 08/12/18 22:00 08/25/18 21:00 Vitamin B1 - PO 100 mg HS AFSANEH Administration Current Side Effect: No Lab tests ordered: Yes Lab tests reviewed: Yes Provider note:: Patient will complete this program on 08/27/18. He has met his treatment goals and will continue to address his issues in outpatient treatment at [facility]. Told tag writer that from his participation in this program, he has learned to talk about his issues and ventilate his feelings. He responded well to Haldol 5 mg po daily and Seroquel 100 mg po HS. Scripts for 30 days supply of theses medications will be electronically transmitted to [facility] at [address] [place] [address]. He is stable for discharge on 08/27/18 Total face to face time:: 35 Mental Status Exam - Mental Status Exam Alert and Oriented to: Time, Place, Person Cognitive Function: Fair Patient Appearance: Well Groomed Affect: Appropriate Patient Behavior: Cooperative Speech Pattern: Clear Voice Loudness: Normal Thought Process: Intact, Goal Oriented Thought Disorder: Not Present Hallucinations: Denies Suicidal Ideation: Denies Homicidal Ideation: Denies Insight/Judgement: Fair Sleep: Fair Appetite: Good Muscle strength/Tone: Normal Gait/Station: Normal Psychiatric Treatment Plan - Problem List (1) Alcohol dependence Current Visit: Yes (2) Cocaine dependence Current Visit: No Qualifiers: (3) Nicotine dependence Current Visit: No Qualifiers: (4) Schizoaffective disorder Current Visit: Yes (5) Substance induced mood disorder Current Visit: No (6) Substance-induced sleep disorder Current Visit: No (7) Hyperlipidemia Current Visit: No Qualifiers: Hyperlipidemia type: pure hypercholesterolemia Qualified Code(s): E78.00 - Pure hypercholesterolemia, unspecified; E78.0 - Pure hypercholesterolemia (8) Cast in place on lower extremity Current Visit: No Initial treatment plan: Patient will be discharged tomorrow and will go back to [facility] for outpatient treatment
[2018-08-26] MEDS: QUEtiapine FUMARATE 100 MG TABLET (FP) PO SCH (21:09)
[2018-08-26] MEDS: THIAMINE HCL 100 MG TABLET (FP) PO SCH (21:09)
[2018-08-27 07:24] VITALS: BP 104/61; PULSE 83; TEMP 97.7
[2018-08-27] MEDS: PRENATAL VITAMINS W/ FOLIC ACID TABLET (FP) PO SCH (09:33)
[2018-08-27] MEDS: BACITRACIN 0.9 GM PACKET TP SCH (09:33)
[2018-08-27] MEDS: HALOPERIDOL 5 MG TABLET (FP) PO SCH (09:33)
--- NOTE | 2018-08-27 10:06 | PN ---
SUE Progress Note Note: PT DISCHARGED TODAY. PT TO F/U WITH HIS OP CLINIC[facility] AFTER DISCHARGE. REMINDED PT TO FOLLOW UP WITH HIS ORTHOPEDICS DOCTOR FOR HIS CAST CARE APPOINTMENT. ALERT O X 3. NAD. Vital Signs - 24 hr 08/27/18 08/27/18 08/27/18 00:30 03:30 07:23 Temperature 97.7 F Pulse Rate 83 Respiratory 17 16 18 Rate Blood Pressure 104/61
== END 2018-08-27 10:05 | disposition home or self-care (01) | DRG 772 ==
LOC: YASAS 12:19 → Y3W 12:20
PROVIDERS: ADMIT Psychiatry & Neurology Psychiatry; ATTEND Psychiatry & Neurology Psychiatry
PROC: HZ42ZZZ Group Counseling for Substance Abuse Treatment, Cognitive-Behavioral (ICD-10-PCS; principal; 2018-08-12)
DX: F10.20 Alcohol dependence, uncomplicated (principal); F14.20 Cocaine dependence, uncomplicated; F17.210 Nicotine dependence, cigarettes, uncomplicated; F25.9 Schizoaffective disorder, unspecified; F19.24 Other psychoactive substance dependence with psychoactive substance-induced mood disorder; F19.282 Other psychoactive substance dependence with psychoactive substance-induced sleep disorder; E78.5 Hyperlipidemia, unspecified; D72.829 Elevated white blood cell count, unspecified; R19.7 Diarrhea, unspecified; R10.13 Epigastric pain; Z87.81 Personal history of (healed) traumatic fracture
CPT/HCPCS: 81003

== ENCOUNTER 2019-11-22 11:54 | Inpatient (IN) | payer OTHER ==
[2019-11-22 12:22] VITALS: BMI 22.6
--- NOTE | 2019-11-22 12:57 | HP ---
COWS - Scale Resting Pulse: 0= [place] 80 or Below Sweatin= Chills/Flushing Restless Observation: 1= Difficult to Sit Still Pupil Size: 1= Pupils >than Normal Bone or Joint Aches: 4=Acute Joint/Muscle Pain Runny Nose/ Eye Tearin= Nasal Congestion GI Upset > 30mins: 2= Nausea/Diarrhea Tremor Observation: 1= Tremor [place], Not Seen Yawning Observation: 1= 1-2x During Session Anxiety or Irritability: 1=Feels Anxious/Irritable Goose Flesh Skin: 3=Piloerection COWS Score: 16 CIWA Score Nausea/Vomitin Muscle Tremors: 2 Anxiety: 4-Mod. Anxious/Guarded Agitation: 3 Paroxysmal Sweats: 1-Minimal Palms Moist Orientation: 0-Oriented Tacttile Disturbances: 0-None Auditory Disturbances: 0-None Visual Disturbances: 0-None Headache: 0-None Present CIWA-Ar Total Score: 12 - Admission Criteria OASAS Guidelines: Admission for Medically Managed Detox: Requires at least one of the followin. CIWA greater than 12 2. Seizures within the past 24 hours 3. Delirium tremens within the past 24 hours 4. Hallucinations within the past 24 hours 5. Acute intervention needed for co occurring medical disorder 6. Acute intervention needed for co occurring psychiatric disorder 7. Severe withdrawal that cannot be handled at a lower level of care (continued vomiting, continued diarrhea, abnormal vital signs) requiring intravenous medication and/or fluids 8. Admitting History and Physical - Admission History of Present Illness: 49 year old male with history of opioid dependence, alcohol dependence, cocaine use disorder, k2 use disorder. Two weeks ago he used K2 and ended up hospitalized. In 2018 07-08/2018 he did well with detox and rehab. He just relapsed in 09/2019. He now wants to attempt detox and rehab and follow up with maintenance program too. He is using 1/2 bundle heroin daily, last used yesterday. He denies overdose on heroin. He is drinking 1/2 case of beer per month. He is smoking crack every day, $1500-$2000 per week, last used this morning. He K2 two weeks ago. PMH: None Psych: Schizoaffective substance induced mood disorder. Currently not taking any psychiatric medications. Psurg: Left arm broken wrist 2001. Homeless and living in intermediate. Support system is girlfriend and family. History Source: Patient Limitations to Obtaining History: No Limitations - Past Surgical History Additional Past Surgical History: left wrist surgery - Smoking History Smoking history: Current every day smoker Have you smoked in the past 12 months: Yes Aproximately how many cigarettes per day: 20 - Alcohol/Substance Use Hx Alcohol Use: Yes History of Substance Use: reports: Cocaine, Heroin, Marijuana Date of Last Use: 11/21/19 - Social History Usual Living Arrangement: Yes: Alone Do you think of yourself as: Straight/Heterosexual ADL: Independent Occupation: unemployed History of Recent Travel: No Admission [facility] Allergies/Adverse Reactions: Allergies Allergy/AdvReac Type Severity Reaction Status Date / Time No Known Allergies Allergy Verified 11/22/19 12:13 Exam Limitations: No Limitations - Ebola screening Have you traveled outside of the country in the last 21 days: No Have you had contact with anyone from an Ebola affected area: No Have you been sick,other than usual withdrawal symptoms: No Do you have a fever: No - Review of Systems Constitutional: Chills, Unintentional Wgt. Loss Respiratory: reports: Cough, Other (light green sputum) Cardiac: reports: No Symptoms Reported GI: reports: Nausea, Abdominal cramping : reports: No Symptoms Reported Musculoskeletal: reports: No Symptoms Reported Integumentary: reports: No Symptoms Reported Neuro: reports: No Symptoms reported, Headache Endocrine: reports: No Symptoms Reported Hematology: reports: No Symptoms Reported Psychiatric: reports: Judgement Intact, Mood/Affect Appropiate, Orientated x3 Other Systems: Reviewed and Negative Patient History - Patient Medical History Hx Anemia: No Hx Asthma: No Hx Chronic Obstructive Pulmonary Disease (COPD): No Hx Cancer: No Hx Cardiac Disorders: No Hx Congestive Heart Failure: No Hx Hypertension: No Hx Hypercholesterolemia: Yes (not taking medication) Hx Pacemaker: No HX Cerebrovascular Accident: No Hx Seizures: No Hx Dementia: No Hx Diabetes: No Hx Gastrointestinal Disorders: No Hx Liver Disease: No Hx Genitourinary Disorders: No Hx Sexually Transmitted Disorders: No Hx Renal Disease (ESRD): No Hx Thyroid Disease: No Hx Human Immunodeficiency Virus (HIV): No Hx Hepatitis C: No Hx Depression: Yes Hx Suicide Attempt: No Hx Bipolar Disorder: Yes (history of meds (seroquel) none x 1 year) Hx Schizophrenia: No - Patient Surgical History Past Surgical History: Yes Hx Neurologic Surgery: No Hx Cataract Extraction: No Hx Cardiac Surgery: No Hx Lung Surgery: No Hx Breast Surgery: No Hx Breast Biopsy: No Hx Abdominal Surgery: No Hx Appendectomy: No Hx Cholecystectomy: No Hx Genitourinary Surgery: No Hx Section: No Hx Orthopedic Surgery: Yes (left arm broken forearm/L BROKEN [facility]KLE 08/10) Anesthesia Reaction: No - PPD History Previous Implant?: Yes Documented Results: Negative w/proof Implanted On Prior [facility] Admission?: No Date: 07/24/20 Results: negative - Smoking Cessation Smoking history: Current every day smoker Have you smoked in the past 12 months: Yes Aproximately how many cigarettes per day: 20 Hx Chewing Tobacco Use: No Initiated information on smoking cessation: Yes 'Breaking Loose' booklet given: 11/22/19 - Substances abused Cocaine Other (specify): both sniff and smoke Substance route: Smoking Frequency: Daily Amount used: $500 Age of first use: 24 Date of last use: 11/22/19 Heroin Substance route: Injection Frequency: 1-2 times per week Amount used: 1-2 bag Age of first use: 44 Date of last use: 11/18/19 Alcohol Substance route: Oral Frequency: Daily Amount used: 24 beers Age of first use: 15 Date of last use: 11/22/19 Crack Substance route: Smoking Frequency: Daily Amount used: $200 Age of first use: 24 Date of last use: 11/22/19 K2/Spice Substance route: Smoking Frequency: Daily Amount used: 1 stick Age of first use: 47 Date of last use: 11/19/19 Admission Physical Exam S - Vital Signs Vital Signs: Vital Signs - 24 hr 11/22/19 12:12 Temperature 97.3 F L Pulse Rate 96 H Respiratory 20 Rate Blood Pressure 107/72 - Physical General Appearance: Yes: Mild Distress, Alcohol on Breath, Tremorous, Irritable , Sweating HEENTM: Yes: EOMI, Hearing grossly Normal, Normal ENT Inspection, Normocephalic , Normal Voice, ISABEL, Pharynx Normal, Tm's normal Respiratory: Yes: Chest Non-Tender, Lungs Clear, Normal Breath Sounds, No Respiratory Distress, No Accessory Muscle Use Neck: Yes: No masses,lesions,Nodules, Supple, Trachea in good position Breast: Yes: Within Normal Limits Cardiology: Yes: Regular Rhythm, Regular Rate, S1, S2 Abdominal: Yes: Non Tender, Flat, Soft, Increased Bowel Sounds Genitourinary: Yes: Within Normal Limits Back: Yes: Normal Inspection Musculoskeletal: Yes: full range of Motion, Gait Steady, Pelvis Stable Extremities: Yes: Normal Capillary Refill, Normal Inspection, Normal Range of Motion, Delayed Capillary Refill Neurological: Yes: social work case manager II-XII NML intact, Fully Oriented, Alert, Motor Strength 5/5, Normal Mood/Affect, Normal Response Integumentary: Yes: Normal Color, Warm Lymphatic: Yes: Within Normal Limits - Diagnostic (1) Alcohol dependence with uncomplicated withdrawal Current Visit: Yes Status: Acute (2) Cocaine dependence Current Visit: Yes Status: Acute Qualifiers: (3) Opioid dependence with withdrawal Current Visit: Yes Status: Acute (4) Substance induced mood disorder Current Visit: Yes Status: Acute (5) Substance-induced sleep disorder Current Visit: Yes Status: Acute (6) Hyperlipidemia Current Visit: Yes Status: Chronic Qualifiers: Hyperlipidemia type: pure hypercholesterolemia Qualified Code(s): E78.00 - Pure hypercholesterolemia, unspecified; E78.0 - Pure hypercholesterolemia (7) Nicotine dependence Current Visit: Yes Status: Chronic Qualifiers: (8) Schizoaffective disorder Current Visit: Yes Status: Chronic Cleared for Admission S - Detox or Rehab [facility] Level of Care: Medically Managed Detox Regimen/Protocol: Methadone/Librium Screened but not Admitted - Documentation of Visit Screened but not Admitted: No Breathalyzer - Breathalyzer Breathalyzer: 0.004 Inpatient Rehab Admission - Rehab Decision to Admit Inpatient rehab admission?: No
[2019-11-22] MEDS ORDERED: MAGNESIUM CITRATE 300 ML BOTTLE PO PRN (13:04)
[2019-11-22] MEDS ORDERED: METHOCARBAMOL 500 MG TABLET PO PRN (13:04)
[2019-11-22] MEDS ORDERED: MAG HYDROX/AL HYDROX/SIMETH 30 ML UNIT-DOSE CUP PO PRN (13:04)
[2019-11-22] MEDS ORDERED: IBUPROFEN 400 MG TABLET (FP) PO PRN (13:04)
[2019-11-22] MEDS ORDERED: MELATONIN 5 MG TABLETS PO PRN (13:04)
[2019-11-22] MEDS ORDERED: cloNIDine HCL 0.1 MG TABLET PO PRN (13:04)
[2019-11-22] MEDS ORDERED: METHADONE HCL 10 MG TABLET (FOR DETOX USE ONLY) PO ONE (13:04)
[2019-11-22] MEDS ORDERED: MAGNESIUM HYDROX 2400MG/30ML ORAL SUSPENSION 30 ML CUP PO PRN (13:04)
[2019-11-22] MEDS ORDERED: hydrOXYzine PAMOATE 25 MG CAPSULE (FP) PO PRN (13:04)
[2019-11-22] MEDS ORDERED: chlordiazePOXIDE HCL 25 MG CAPSULE PO PRN (13:04)
[2019-11-22] MEDS ORDERED: BISMUTH SUBSALICYLATE 262 MG/15 ML BTL PO PRN (13:04)
[2019-11-22] MEDS ORDERED: ACETAMINOPHEN 325 MG TABLET (FP) PO PRN ×2 (13:04)
[2019-11-22] MEDS ORDERED: MENTHOL/PHENOL 1 EACH UD MM PRN (13:04)
[2019-11-22] MEDS: NICOTINE 14 MG/24 HOURS TOPICAL PATCH TD SCH (14:50)
[2019-11-22] MEDS: chlordiazePOXIDE HCL 25 MG CAPSULE PO SCH ×2 (17:13→22:50)
[2019-11-22 17:14] LABS: HEMATOCRIT 42.4 % (35.4-49); HEMOGLOBIN 13.9 GM/dL (11.7-16.9); MCH 30.5 pg (25.7-33.7); MCHC 32.8 g/dl (32.0-35.9); MEAN CELL VOLUME 93.1 fl (80-96); MEAN PLT VOLUME 8.8 fl (7.5-11.1); PLATELET COUNT 257 K/MM3 (134-434); RBC 4.55 M/mm3 (4.00-5.60); RDW 14.1 % (11.9-15.9); WHITE BLOOD COUNT 5.6 K/mm3 (4.0-10.0)
[2019-11-22 17:24] LABS: ALBUMIN 3.6 g/dl (3.4-5.0); BILIRUBIN,TOTAL 0.7 mg/dL (0.2-1); BLOOD UREA NITROGEN 14.8 mg/dL (7-18); CALCIUM 9.3 mg/dL (8.5-10.1); CREATININE 1.3 mg/dL (0.55-1.3); POTASSIUM 3.7 mmol/L (3.5-5.1); TOT PROT 7.5 g/dl (6.4-8.2)
[2019-11-22] MEDS: THIAMINE HCL 100 MG TABLET (FP) PO SCH (22:51)
[2019-11-23] MEDS: chlordiazePOXIDE HCL 25 MG CAPSULE PO SCH ×4 (06:31→22:55)
[2019-11-23] MEDS ORDERED: METHADONE (DETOX) 20 MG, METHADONE (DETOX) 5 MG PO ONE (10:00)
[2019-11-23] MEDS: PRENATAL VITAMINS W/ FOLIC ACID TABLET (FP) PO SCH (10:53)
[2019-11-23] MEDS: NICOTINE 14 MG/24 HOURS TOPICAL PATCH TD SCH (10:53)
--- NOTE | 2019-11-23 11:19 | PN ---
[facility] CIWA - CIWA Score Nausea/Vomitin-Mild Nausea/No Vomiting Muscle Tremors: 2 Anxiety: 2 Agitation: 1-Slight > Activity Paroxysmal Sweats: 2 Orientation: 0-Oriented Tacttile Disturbances: 1-Very Mild Itch/Numbness Auditory Disturbances: 0-None Visual Disturbances: 0-None Headache: 2-Mild CIWA-Ar Total Score: 11 [facility] COWS - Scale Resting Pulse: 1= [place] 81-100 Sweatin= Chills/Flushing Restless Observation: 1= Difficult to Sit Still Pupil Size: 0= Normal to Room Light Bone or Joint Aches: 1= Mild Discomfort Runny Nose/ Eye Tearin= Runny Nose/Eyes GI Upset > 30mins: 2= Nausea/Diarrhea Tremor Observation of Outstretched Hands: 1= Tremor [place], Not Seen Yawning Observation: 1= 1-2x During Session Anxiety or Irritability: 1=Feels Anxious/Irritable Goose Flesh Skin: 0=Smooth Skin COWS Score: 11 [facility] Progress Note (SOAP) Subjective: Patient c/o of cough x 2 days, nasal congestion, chills, sweats, interrupted sleep, body aches Objective: 11/23/19 11:18 Vital Signs Temperature 97.7 F 11/23/19 10:06 Pulse Rate 96 H 11/23/19 10:06 Respiratory Rate 18 11/23/19 10:06 Blood Pressure 127/67 11/23/19 10:06 O2 Sat by Pulse Oximetry (%) Laboratory Last Values WBC 5.6 K/mm3 (4.0-10.0) 11/22/19 13:55 RBC 4.55 M/mm3 (4.00-5.60) 11/22/19 13:55 Hgb 13.9 GM/dL (11.7-16.9) 11/22/19 13:55 Hct 42.4 % (35.4-49) 11/22/19 13:55 MCV 93.1 fl (80-96) 11/22/19 13:55 MCH 30.5 pg (25.7-33.7) 11/22/19 13:55 MCHC 32.8 g/dl (32.0-35.9) 11/22/19 13:55 RDW 14.1 % (11.9-15.9) 11/22/19 13:55 Plt Count 257 K/MM3 (134-434) D 11/22/19 13:55 MPV 8.8 fl (7.5-11.1) 11/22/19 13:55 Sodium 140 mmol/L (136-145) 11/22/19 13:55 Potassium 3.7 mmol/L (3.5-5.1) 11/22/19 13:55 Chloride 106 mmol/L (98-107) 11/22/19 13:55 Carbon Dioxide 27 mmol/L (21-32) 11/22/19 13:55 Anion Gap 7 MMOL/L (8-16) L 11/22/19 13:55 BUN 14.8 mg/dL (7-18) 11/22/19 13:55 Creatinine 1.3 mg/dL (0.55-1.3) 11/22/19 13:55 Est GFR (CKD-EPI)AfAm 73.74 11/22/19 13:55 Est GFR (CKD-EPI)NonAf 63.62 11/22/19 13:55 Random Glucose 100 mg/dL (74-106) 11/22/19 13:55 Calcium 9.3 mg/dL (8.5-10.1) 11/22/19 13:55 Total Bilirubin 0.7 mg/dL (0.2-1) 11/22/19 13:55 AST 19 U/L (15-37) 11/22/19 13:55 ALT 19 U/L (13-61) 11/22/19 13:55 Alkaline Phosphatase 83 U/L (45-117) 11/22/19 13:55 Total Protein 7.5 g/dl (6.4-8.2) 11/22/19 13:55 Albumin 3.6 g/dl (3.4-5.0) 11/22/19 13:55 Assessment: 11/23/19 11:18 Ao x 3 no acute distress + cough EENT WNL full ROM no gait disturbance ambulating in the unit withdrawal sx Plan: increase PO fluids continue detox continue to monitor
[2019-11-23] MEDS: THIAMINE HCL 100 MG TABLET (FP) PO SCH (22:55)
[2019-11-24] MEDS: chlordiazePOXIDE HCL 25 MG CAPSULE PO SCH ×4 (06:23→23:43)
[2019-11-24] MEDS ORDERED: METHADONE HCL 10 MG TABLET (FOR DETOX USE ONLY) PO ONE (10:00)
[2019-11-24] MEDS: NICOTINE 14 MG/24 HOURS TOPICAL PATCH TD SCH (10:46)
[2019-11-24] MEDS: PRENATAL VITAMINS W/ FOLIC ACID TABLET (FP) PO SCH (10:48)
--- NOTE | 2019-11-24 10:49 | PN ---
S CIWA - CIWA Score Nausea/Vomitin-No Nausea/No Vomiting Muscle Tremors: 2 Anxiety: 3 Agitation: 0-Normal Activity Paroxysmal Sweats: 3 Orientation: 0-Oriented Tacttile Disturbances: 0-None Auditory Disturbances: 0-None Visual Disturbances: 0-None Headache: 2-Mild CIWA-Ar Total Score: 10 S COWS - Scale Resting Pulse: 1= [place] 81-100 Sweatin= Beads of Sweat on Face Restless Observation: 1= Difficult to Sit Still Pupil Size: 0= Normal to Room Light Bone or Joint Aches: 0= None Runny Nose/ Eye Tearin= None GI Upset > 30mins: 0= None Tremor Observation of Outstretched Hands: 2= Slight Tremor Visible Yawning Observation: 1= 1-2x During Session Anxiety or Irritability: 2=Irritable/Anxious Goose Flesh Skin: 0=Smooth Skin COWS Score: 10 S Progress Note (SOAP) Subjective: c/o headache, anxiety, sweats, and shakes. Objective: 11/24/19 10:49 Vital Signs 11/24/19 11/24/19 11/24/19 03:30 07:27 09:36 Temperature 98.1 F 96.3 F L Pulse Rate 69 90 Respiratory 18 18 18 Rate Blood Pressure 105/66 116/70 Laboratory Last Values WBC 5.6 K/mm3 (4.0-10.0) 11/22/19 13:55 RBC 4.55 M/mm3 (4.00-5.60) 11/22/19 13:55 Hgb 13.9 GM/dL (11.7-16.9) 11/22/19 13:55 Hct 42.4 % (35.4-49) 11/22/19 13:55 MCV 93.1 fl (80-96) 11/22/19 13:55 MCH 30.5 pg (25.7-33.7) 11/22/19 13:55 MCHC 32.8 g/dl (32.0-35.9) 11/22/19 13:55 RDW 14.1 % (11.9-15.9) 11/22/19 13:55 Plt Count 257 K/MM3 (134-434) D 11/22/19 13:55 MPV 8.8 fl (7.5-11.1) 11/22/19 13:55 Sodium 140 mmol/L (136-145) 11/22/19 13:55 Potassium 3.7 mmol/L (3.5-5.1) 11/22/19 13:55 Chloride 106 mmol/L (98-107) 11/22/19 13:55 Carbon Dioxide 27 mmol/L (21-32) 11/22/19 13:55 Anion Gap 7 MMOL/L (8-16) L 11/22/19 13:55 BUN 14.8 mg/dL (7-18) 11/22/19 13:55 Creatinine 1.3 mg/dL (0.55-1.3) 11/22/19 13:55 Est GFR (CKD-EPI)AfAm 73.74 11/22/19 13:55 Est GFR (CKD-EPI)NonAf 63.62 11/22/19 13:55 Random Glucose 100 mg/dL (74-106) 11/22/19 13:55 Calcium 9.3 mg/dL (8.5-10.1) 11/22/19 13:55 Total Bilirubin 0.7 mg/dL (0.2-1) 11/22/19 13:55 AST 19 U/L (15-37) 11/22/19 13:55 ALT 19 U/L (13-61) 11/22/19 13:55 Alkaline Phosphatase 83 U/L (45-117) 11/22/19 13:55 Total Protein 7.5 g/dl (6.4-8.2) 11/22/19 13:55 Albumin 3.6 g/dl (3.4-5.0) 11/22/19 13:55 RPR Titer Nonreactive (NONREACTIVE) 11/22/19 13:55 Labs noted. Assessment: 11/24/19 10:49 AOX3, in no acute respiratory distress. Full ROM, ambulating in the unit. Withdrawal symptoms. Plan: continue detox.
[2019-11-24] MEDS: THIAMINE HCL 100 MG TABLET (FP) PO SCH (22:52)
[2019-11-25] MEDS ORDERED: chlordiazePOXIDE HCL 10 MG CAPSULE PO PRN
[2019-11-25] MEDS: chlordiazePOXIDE HCL 10 MG CAPSULE PO SCH ×4 (06:30→23:43)
[2019-11-25] MEDS ORDERED: METHADONE (DETOX) 10 MG, METHADONE (DETOX) 5 MG PO ONE (10:00)
[2019-11-25] MEDS: PRENATAL VITAMINS W/ FOLIC ACID TABLET (FP) PO SCH (10:10)
[2019-11-25] MEDS: NICOTINE 14 MG/24 HOURS TOPICAL PATCH TD SCH (10:11)
--- NOTE | 2019-11-25 11:20 | PN ---
S CIWA - CIWA Score Nausea/Vomitin-Mild Nausea/No Vomiting Muscle Tremors: 2 Anxiety: 1-Mildly Anxious Agitation: 1-Slight > Activity Paroxysmal Sweats: No Perspiration Orientation: 0-Oriented Tacttile Disturbances: 0-None Auditory Disturbances: 0-None Visual Disturbances: 0-None Headache: 1-Very Mild CIWA-Ar Total Score: 6 BHS COWS - Scale Resting Pulse: 0= HI 80 or Below Sweatin= No chills or Flushing Restless Observation: 0= Sits Still Pupil Size: 0= Normal to Room Light Bone or Joint Aches: 1= Mild Discomfort Runny Nose/ Eye Tearin= Nasal Congestion GI Upset > 30mins: 1= Stomach Cramp Tremor Observation of Outstretched Hands: 1= Tremor [place], Not Seen Yawning Observation: 1= 1-2x During Session Anxiety or Irritability: 0= None Goose Flesh Skin: 0=Smooth Skin COWS Score: 5 BHS Progress Note (SOAP) Subjective: pt states he is feeling fine on detox meds O: Vital Signs - 24 hr 11/24/19 11/25/19 11/25/19 17:11 00:30 03:30 Temperature 97.7 F Pulse Rate 82 Respiratory 18 18 16 Rate Blood Pressure 105/69 11/25/19 11/25/19 06:00 09:38 Temperature 97.7 F 98.1 F Pulse Rate 71 84 Respiratory 18 18 Rate Blood Pressure 100/57 L 156/83 Laboratory Tests 11/22/19 11/22/19 11/22/19 13:55 13:55 13:55 WBC 5.6 RBC 4.55 Hgb 13.9 Hct 42.4 MCV 93.1 MCH 30.5 MCHC 32.8 RDW 14.1 Plt Count 257 D MPV 8.8 Sodium 140 Potassium 3.7 Chloride 106 Carbon Dioxide 27 Anion Gap 7 L BUN 14.8 Creatinine 1.3 Est GFR (CKD-EPI)AfAm 73.74 Est GFR (CKD-EPI)NonAf 63.62 Random Glucose 100 Calcium 9.3 Total Bilirubin 0.7 AST 19 ALT 19 Alkaline Phosphatase 83 Total Protein 7.5 Albumin 3.6 RPR Titer Nonreactive a/p: Polusubstance use: continue detox protocols history of opioid dependence, alcohol dependence, cocaine use disorder, k2 use disorder.
[2019-11-25] MEDS: THIAMINE HCL 100 MG TABLET (FP) PO SCH (23:43)
[2019-11-26] MEDS: chlordiazePOXIDE HCL 10 MG CAPSULE PO SCH ×2 (06:40→17:12)
[2019-11-26] MEDS ORDERED: METHADONE HCL 10 MG TABLET (FOR DETOX USE ONLY) PO ONE (10:00)
[2019-11-26] MEDS: PRENATAL VITAMINS W/ FOLIC ACID TABLET (FP) PO SCH (11:43)
[2019-11-26] MEDS: NICOTINE 14 MG/24 HOURS TOPICAL PATCH TD SCH (11:43)
--- NOTE | 2019-11-26 14:34 | PN ---
[facility] CIWA - CIWA Score Nausea/Vomitin-Mild Nausea/No Vomiting Muscle Tremors: 2 Anxiety: 1-Mildly Anxious Agitation: 1-Slight > Activity Paroxysmal Sweats: 1-Minimal Palms Moist Orientation: 1-Uncertain about Date Tacttile Disturbances: 0-None Auditory Disturbances: 0-None Visual Disturbances: 0-None Headache: 0-None Present CIWA-Ar Total Score: 7 S COWS - Scale Resting Pulse: 0= HI 80 or Below Sweatin= No chills or Flushing Restless Observation: 1= Difficult to Sit Still Pupil Size: 0= Normal to Room Light Bone or Joint Aches: 0= None Runny Nose/ Eye Tearin= None GI Upset > 30mins: 0= None Tremor Observation of Outstretched Hands: 0= None Yawning Observation: 0= None [facility] Progress Note (SOAP) Subjective: pt states he is feeling fine. O: Vital Signs - 24 hr 11/25/19 11/25/19 11/26/19 17:30 21:52 00:30 Temperature 98.3 F 98.2 F Pulse Rate 92 H 78 Respiratory 18 18 18 Rate Blood Pressure 122/83 118/67 11/26/19 11/26/19 11/26/19 03:48 08:22 10:42 Temperature 97.9 F 97.9 F Pulse Rate 71 86 Respiratory 18 20 16 Rate Blood Pressure 131/67 101/76 Laboratory Tests 11/22/19 11/22/19 11/22/19 13:55 13:55 13:55 WBC 5.6 RBC 4.55 Hgb 13.9 Hct 42.4 MCV 93.1 MCH 30.5 MCHC 32.8 RDW 14.1 Plt Count 257 D MPV 8.8 Sodium 140 Potassium 3.7 Chloride 106 Carbon Dioxide 27 Anion Gap 7 L BUN 14.8 Creatinine 1.3 Est GFR (CKD-EPI)AfAm 73.74 Est GFR (CKD-EPI)NonAf 63.62 Random Glucose 100 Calcium 9.3 Total Bilirubin 0.7 AST 19 ALT 19 Alkaline Phosphatase 83 Total Protein 7.5 Albumin 3.6 RPR Titer Nonreactive a/p Polysubstance use disorder- on dual detox protocol anticipate discharge tomorrow
[2019-11-26] MEDS: THIAMINE HCL 100 MG TABLET (FP) PO SCH (22:51)
[2019-11-27] MEDS ORDERED: chlordiazePOXIDE HCL 10 MG CAPSULE PO ONE (05:00)
[2019-11-27] MEDS ORDERED: METHADONE HCL 5 MG TABLET (FOR DETOX USE ONLY) PO ONE (06:00)
[2019-11-27 09:06] VITALS: BP 122/78; PULSE 70; TEMP 97.2
[2019-11-27] MEDS: NICOTINE 14 MG/24 HOURS TOPICAL PATCH TD SCH (11:04)
[2019-11-27] MEDS: PRENATAL VITAMINS W/ FOLIC ACID TABLET (FP) PO SCH (11:05)
--- NOTE | 2019-11-27 14:20 | DS ---
[facility] Detox Discharge Summary Admission Date: 11/22/19 Discharge Date: 11/27/19 - History Present History: Alcohol Dependence, Cocaine Dependence, Opioid Dependence, K 2 Additional Comments: Pt completed detox successfully and discharged safely to [facility] inpatient rehab. Patient is stable. Pertinent Past History: HLD - Physical Exam Results Vital Signs: Vital Signs Temperature 97.2 F L 11/27/19 09:06 Pulse Rate 70 11/27/19 09:06 Respiratory Rate 16 11/27/19 09:06 Blood Pressure 122/78 11/27/19 09:06 O2 Sat by Pulse Oximetry (%) Pertinent Admission Physical Exam Findings: Withdrawal sxs Laboratory Tests 11/22/19 11/22/19 11/22/19 13:55 13:55 13:55 WBC 5.6 RBC 4.55 Hgb 13.9 Hct 42.4 MCV 93.1 MCH 30.5 MCHC 32.8 RDW 14.1 Plt Count 257 D MPV 8.8 Sodium 140 Potassium 3.7 Chloride 106 Carbon Dioxide 27 Anion Gap 7 L BUN 14.8 Creatinine 1.3 Est GFR (CKD-EPI)AfAm 73.74 Est GFR (CKD-EPI)NonAf 63.62 Random Glucose 100 Calcium 9.3 Total Bilirubin 0.7 AST 19 ALT 19 Alkaline Phosphatase 83 Total Protein 7.5 Albumin 3.6 RPR Titer Nonreactive Labs reviewed - Treatment Hospital Course: Detox Protocol Followed, Detoxed Safely, Responded well, Discharged Condition Good, Rehab Referral Accepted - Medication Discharge Medications: Ambulatory Orders NK [No Known Home Medication] 11/22/19 - Diagnosis (1) Synthetic cannabinoid dependence Status: Acute (2) Alcohol dependence with uncomplicated withdrawal Status: Acute (3) Cocaine dependence Status: Acute Qualifiers: (4) Opioid dependence with withdrawal Status: Acute (5) Hyperlipidemia Status: Chronic Qualifiers: Hyperlipidemia type: pure hypercholesterolemia Qualified Code(s): E78.00 - Pure hypercholesterolemia, unspecified; E78.0 - Pure hypercholesterolemia (6) Nicotine dependence Status: Chronic Qualifiers: - AMA Did Patient Leave Against Medical Advice: No (Accepted admission to [facility] Rehab)
== END 2019-11-27 12:15 | disposition other institution (70) | DRG 773 ==
LOC: YASAS 11:54 → Y6N 13:27
PROVIDERS: ADMIT Allergy & Immunology; ATTEND Allergy & Immunology
PROC: HZ2ZZZZ Detoxification Services for Substance Abuse Treatment (ICD-10-PCS; principal; 2019-11-22)
DX: F11.23 Opioid dependence with withdrawal (principal); F10.230 Alcohol dependence with withdrawal, uncomplicated; F14.20 Cocaine dependence, uncomplicated; F12.20 Cannabis dependence, uncomplicated; F17.210 Nicotine dependence, cigarettes, uncomplicated; E78.5 Hyperlipidemia, unspecified; Z59.0 Homelessness
CPT/HCPCS: 36415; 80053; 85027; 86593

== ENCOUNTER 2019-11-27 12:21 | Inpatient (IN) | payer OTHER ==
[2019-11-27] MEDS ORDERED: MAGNESIUM CITRATE 300 ML BOTTLE PO PRN (14:26)
[2019-11-27] MEDS ORDERED: MAG HYDROX/AL HYDROX/SIMETH 30 ML UNIT-DOSE CUP PO PRN (14:26)
[2019-11-27] MEDS ORDERED: P-EPHED 60MG/TRIPROLIDI 2.5MG TABLET PO PRN (14:26)
[2019-11-27] MEDS ORDERED: ACETAMINOPHEN 325 MG TABLET (FP) PO PRN (14:26)
[2019-11-27] MEDS ORDERED: LOPERAMIDE HCL 2 MG CAPSULE PO PRN (14:26)
[2019-11-27] MEDS ORDERED: guaiFENesin 200 MG/10 ML 10 ML UNIT-DOSE CUPS PO PRN (14:26)
[2019-11-27] MEDS ORDERED: NICOTINE POLACRILEX 2 MG GUM BUC PRN (14:26)
[2019-11-27] MEDS ORDERED: MENTHOL/PHENOL 1 EACH UD MM PRN (14:26)
[2019-11-27] MEDS ORDERED: IBUPROFEN 400 MG TABLET (FP) PO PRN (14:26)
[2019-11-27] MEDS ORDERED: hydrOXYzine PAMOATE 50 MG CAPSULE (FP) PO PRN (14:26)
[2019-11-27] MEDS ORDERED: MAGNESIUM HYDROX 2400MG/30ML ORAL SUSPENSION 30 ML CUP PO PRN (14:26)
--- NOTE | 2019-11-27 14:26 | HP ---
[facility] Rehab Assess/Revision - Admission History Admitted to Rehab from: [facility] [address] Date of Admission to Rehab: 11/27/2019 - Findings Detox History & Physical reviewed: Yes Concur with findings: Yes Inpatient Rehab Admission - Rehab Decision to Admit Inpatient rehab admission?: Yes - Initial Determination Are CD services needed?: No Free of communicable disease: Yes Not in need of hospitalization: No - Rehab Admission Criteria Previous failed treatment: Yes Poor recovery environment: Yes Comorbidities: Yes Lacks judgement: Yes Patient is meeting Inpatient Rehab admission criteria:: Yes
[2019-11-27] MEDS: THIAMINE HCL 100 MG TABLET (FP) PO SCH (21:49)
[2019-11-27] MEDS ORDERED: MELATONIN 5 MG TABLETS PO PRN (22:00)
[2019-11-28] MEDS: PRENATAL VITAMINS W/ FOLIC ACID TABLET (FP) PO SCH (11:07)
[2019-11-28] MEDS: THIAMINE HCL 100 MG TABLET (FP) PO SCH (21:48)
[2019-11-29] MEDS: PRENATAL VITAMINS W/ FOLIC ACID TABLET (FP) PO SCH (11:04)
[2019-11-29] MEDS: THIAMINE HCL 100 MG TABLET (FP) PO SCH (21:39)
[2019-11-30] MEDS: PRENATAL VITAMINS W/ FOLIC ACID TABLET (FP) PO SCH (10:31)
--- NOTE | 2019-11-30 13:42 | DS ---
[facility] Rehab Discharge Summary - [facility] Rehab Discharge Summary Admission Date: 11/27/19 Discharge Date: 11/30/19 - History Present History: Alcohol dependence, Cocaine dependence Additional Comments: Patient a 49 yo male successfully completed inpatient rehabilitation. Patient to follow up with Primary Care at [facility]. Follow up with aftercare at [facility]. - Discharge Physical Exam Vital Signs: Vital Signs Temperature 98.1 F 11/30/19 07:18 Pulse Rate 65 11/30/19 07:18 Respiratory Rate 11/30/19 07:18 Blood Pressure 112/84 11/30/19 07:18 O2 Sat by Pulse Oximetry (%) Pertinent Admission Physical Exam Findings: No SI/HI Patient is AO x 3 no acute distress No adventitious breath sounds Full ROM, no gait disturbance no edema or erythema Vital Signs Temperature 98.1 F 11/30/19 07:18 Pulse Rate 65 11/30/19 07:18 Respiratory Rate 11/30/19 07:18 Blood Pressure 112/84 11/30/19 07:18 O2 Sat by Pulse Oximetry (%) Laboratory Last Values HIV 1&2 Antibody Screen Negative 11/28/19 08:15 HIV P24 Antigen Negative 11/28/19 08:15 - Treatment Discharge Condition: Rehabilitated safely Hospital Course: Stable, completed inpatient rehabilitation follow up with out patient referral - Medication Discharge Medications: Ambulatory Orders NK [No Known Home Medication] 11/22/19 - Medication-Assisted Treatment (MAT) Medication-Assisted Treatment (MAT): No - Discharge Instructions Diet, activity, other medical instructions: Diet: Activity: Other medical instructions: - Diagnosis (1) Alcohol dependence Current Visit: Yes Status: Acute (2) Cocaine dependence Current Visit: Yes Status: Acute Qualifiers: (3) Nicotine dependence Current Visit: Yes Status: Chronic Qualifiers: Nicotine product type: cigarettes - AMA Did Patient Leave Against Medical Advice: No
[2019-11-30] MEDS: THIAMINE HCL 100 MG TABLET (FP) PO SCH (21:40)
[2019-12-01 06:54] VITALS: BP 129/70; PULSE 64; TEMP 98.4
== END 2019-12-01 07:00 | disposition home or self-care (01) | DRG 772 ==
LOC: YASAS 12:21 → Y3W 12:24
PROVIDERS: ADMIT Neuromusculoskeletal Medicine & OMM; ATTEND Neuromusculoskeletal Medicine & OMM
PROC: HZ42ZZZ Group Counseling for Substance Abuse Treatment, Cognitive-Behavioral (ICD-10-PCS; principal; 2019-11-27)
DX: F10.20 Alcohol dependence, uncomplicated (principal); F14.20 Cocaine dependence, uncomplicated; F17.210 Nicotine dependence, cigarettes, uncomplicated; Z59.0 Homelessness
CPT/HCPCS: 36415; 87389

== ENCOUNTER 2020-12-15 10:44 | Inpatient (IN) | payer OTHER ==
[2020-12-15 13:11] VITALS: BMI 23.5
[2020-12-15] MEDS ORDERED: METHOCARBAMOL 500 MG TABLET PO PRN (15:24)
[2020-12-15] MEDS ORDERED: chlordiazePOXIDE HCL 25 MG CAPSULE PO PRN (15:24)
[2020-12-15] MEDS ORDERED: MAGNESIUM HYDROX 2400MG/30ML ORAL SUSPENSION 30 ML CUP PO PRN (15:24)
[2020-12-15] MEDS ORDERED: MAG HYDROX/AL HYDROX/SIMETH 30 ML UNIT-DOSE CUP PO PRN (15:24)
[2020-12-15] MEDS ORDERED: BISMUTH SUBSALICYLATE 524 MG/30 ML UD PO PRN (15:24)
[2020-12-15] MEDS ORDERED: ONDANSETRON *ODT* 4 MG TABLET SL PRN (15:24)
[2020-12-15] MEDS ORDERED: ACETAMINOPHEN 325 MG TABLET (FP) PO PRN ×2 (15:24)
[2020-12-15] MEDS ORDERED: MENTHOL/PHENOL 1 EACH UD MM PRN (15:24)
[2020-12-15] MEDS ORDERED: NICOTINE POLACRILEX 2 MG GUM BUC PRN (15:24)
[2020-12-15] MEDS ORDERED: MAGNESIUM CITRATE 300 ML BOTTLE PO PRN (15:24)
[2020-12-15] MEDS ORDERED: IBUPROFEN 400 MG TABLET (FP) PO PRN (15:24)
[2020-12-15] MEDS ORDERED: chlordiazePOXIDE HCL 25 MG CAPSULE ONE (16:16)
[2020-12-15] MEDS: chlordiazePOXIDE HCL 25 MG CAPSULE PO SCH (16:22)
[2020-12-15] MEDS ORDERED: hydrOXYzine PAMOATE 25 MG CAPSULE (FP) PO ONE (17:43)
[2020-12-15] MEDS: hydrOXYzine PAMOATE 25 MG CAPSULE (FP) PO SCH (17:44)
[2020-12-16] MEDS: hydrOXYzine PAMOATE 25 MG CAPSULE (FP) PO SCH ×4 (00:22→13:37)
[2020-12-16] MEDS: MELATONIN 5 MG TABLETS PO SCH ×2 (00:22→22:30)
[2020-12-16] MEDS: THIAMINE HCL 100 MG TABLET (FP) PO SCH ×2 (00:22→22:30)
[2020-12-16] MEDS: chlordiazePOXIDE HCL 25 MG CAPSULE PO SCH ×5 (00:23→22:31)
[2020-12-16] MEDS: PRENATAL VITAMINS W/ FOLIC ACID TABLET (FP) PO SCH (10:03)
[2020-12-16 12:28] LABS: HEMATOCRIT 41.6 % (35.4-49); HEMOGLOBIN 13.8 GM/dL (11.7-16.9); MCH 31.5 pg (25.7-33.7); MCHC 33.3 g/dl (32.0-35.9); MEAN CELL VOLUME 94.6 fl (80-96); MEAN PLT VOLUME 8.8 fl (7.5-11.1); PLATELET COUNT 90 K/MM3 (134-434); RBC 4.39 M/mm3 (4.00-5.60); RDW 14.3 % (11.9-15.9); WHITE BLOOD COUNT 3.5 K/mm3 (4.0-10.0)
[2020-12-16 12:30] LABS: POTASSIUM 4.8 mmol/L (3.5-5.1)
[2020-12-16 12:32] LABS: BLOOD UREA NITROGEN 7.9 mg/dL (7-18)
[2020-12-16 12:42] LABS: ALBUMIN 3.4 g/dl (3.4-5.0); BILIRUBIN,TOTAL 0.3 mg/dL (0.2-1); CALCIUM 8.5 mg/dL (8.5-10.1); TOT PROT 6.9 g/dl (6.4-8.2)
[2020-12-16] MEDS ORDERED: hydrOXYzine PAMOATE 25 MG CAPSULE (FP) PO PRN (14:34)
[2020-12-16] MEDS ORDERED: cloNIDine HCL 0.1 MG TABLET PO PRN (14:37)
[2020-12-16] MEDS: amLODIPine BESYLATE 5 MG TABLET (FP) PO SCH (15:11)
[2020-12-17] MEDS: chlordiazePOXIDE HCL 25 MG CAPSULE PO SCH ×4 (05:49→22:51)
[2020-12-17] MEDS: PRENATAL VITAMINS W/ FOLIC ACID TABLET (FP) PO SCH (10:30)
[2020-12-17] MEDS: amLODIPine BESYLATE 5 MG TABLET (FP) PO SCH (10:30)
[2020-12-17] MEDS: THIAMINE HCL 100 MG TABLET (FP) PO SCH (22:52)
[2020-12-17] MEDS: MELATONIN 5 MG TABLETS PO SCH (22:52)
[2020-12-18] MEDS ORDERED: chlordiazePOXIDE HCL 10 MG CAPSULE PO PRN
[2020-12-18] MEDS: chlordiazePOXIDE HCL 10 MG CAPSULE PO SCH ×2 (06:30→10:25)
[2020-12-18] MEDS: PRENATAL VITAMINS W/ FOLIC ACID TABLET (FP) PO SCH (10:26)
[2020-12-18] MEDS: amLODIPine BESYLATE 5 MG TABLET (FP) PO SCH (10:26)
[2020-12-18 13:26] VITALS: BP 117/60; PULSE 84; TEMP 98.1
[2020-12-19] MEDS ORDERED: chlordiazePOXIDE HCL 10 MG CAPSULE PO SCH (05:00)
[2020-12-20] MEDS ORDERED: chlordiazePOXIDE HCL 10 MG CAPSULE PO ONE (05:00)
== END 2020-12-18 14:11 | disposition home or self-care (01) | DRG 774 ==
LOC: YASAS 10:44 → Y6N 20:13
PROVIDERS: ADMIT Allergy & Immunology; ATTEND Allergy & Immunology
PROC: HZ2ZZZZ Detoxification Services for Substance Abuse Treatment (ICD-10-PCS; principal; 2020-12-15)
DX: F10.230 Alcohol dependence with withdrawal, uncomplicated (principal); F14.20 Cocaine dependence, uncomplicated; F17.210 Nicotine dependence, cigarettes, uncomplicated; Z86.69 Personal history of other diseases of the nervous system and sense organs
CPT/HCPCS: 36415; 80053; 82962; 85027; 86780; 87389; 93005; 93010; C9803; U0003

== ENCOUNTER 2022-03-22 08:28 | Inpatient (IN) | payer OTHER ==
[2022-03-22] MEDS ORDERED: MAG HYDROX/AL HYDROX/SIMETH 30 ML UNIT-DOSE CUP PO PRN (09:23)
[2022-03-22] MEDS ORDERED: LOPERAMIDE HCL 2 MG CAPSULE PO PRN (09:23)
[2022-03-22] MEDS ORDERED: guaiFENesin 200 MG/10 ML 10 ML UNIT-DOSE CUPS PO PRN (09:23)
[2022-03-22] MEDS ORDERED: MAGNESIUM CITRATE 300 ML BOTTLE PO PRN (09:23)
[2022-03-22] MEDS ORDERED: MELATONIN 5 MG TABLETS PO PRN (09:23)
[2022-03-22] MEDS ORDERED: ACETAMINOPHEN 325 MG TABLET (FP) PO PRN (09:23)
[2022-03-22] MEDS ORDERED: IBUPROFEN 400 MG TABLET (FP) PO PRN (09:23)
[2022-03-22] MEDS ORDERED: hydrOXYzine PAMOATE 25 MG CAPSULE (FP) PO PRN (09:23)
[2022-03-22] MEDS ORDERED: P-EPHED 60MG/TRIPROLIDI 2.5MG TABLET PO PRN (09:23)
[2022-03-22] MEDS ORDERED: MAGNESIUM HYDROX 2400MG/30ML ORAL SUSPENSION 30 ML CUP PO PRN (09:23)
[2022-03-22 10:33] VITALS: BMI 19.2
[2022-03-22 14:41] VITALS: TEMP 97.9
[2022-03-22] MEDS: PRENATAL VITAMINS W/ FOLIC ACID TABLET (FP) PO SCH (14:54)
[2022-03-22] MEDS: THIAMINE HCL 100 MG TABLET (FP) PO SCH (21:25)
[2022-03-23] MEDS: PRENATAL VITAMINS W/ FOLIC ACID TABLET (FP) PO SCH (10:19)
[2022-03-23 12:01] VITALS: BP 107/64; PULSE 91
[2022-03-23] MEDS: THIAMINE HCL 100 MG TABLET (FP) PO SCH (23:24)
[2022-03-24] MEDS: PRENATAL VITAMINS W/ FOLIC ACID TABLET (FP) PO SCH (10:43)
[2022-03-24 12:34] LABS: HEMATOCRIT 40.4 % (35.4-49); HEMOGLOBIN 13.3 GM/dL (11.7-16.9); MCH 30.6 pg (25.7-33.7); MEAN CELL VOLUME 92.7 fl (80-96); MEAN PLT VOLUME 8.8 fl (7.5-11.1); PLATELET COUNT 236 10^3/uL (134-434); RBC 4.36 M/mm3 (4.00-5.60); RDW 14.1 % (11.9-15.9); WHITE BLOOD COUNT 4.1 K/mm3 (4.0-10.0)
[2022-03-24 12:58] LABS: BLOOD UREA NITROGEN 11.7 mg/dL (7-18); CALCIUM 8.8 mg/dL (8.5-10.1)
[2022-03-24 12:59] LABS: ALBUMIN 3.4 g/dl (3.4-5.0)
[2022-03-24 13:01] LABS: CREATININE 1.3 mg/dL (0.55-1.3)
[2022-03-24 13:03] LABS: BILIRUBIN,TOTAL 0.3 mg/dL (0.2-1); TOT PROT 6.8 g/dl (6.4-8.2)
[2022-03-24] MEDS: THIAMINE HCL 100 MG TABLET (FP) PO SCH (23:01)
[2022-03-25] MEDS: PRENATAL VITAMINS W/ FOLIC ACID TABLET (FP) PO SCH (10:06)
[2022-03-25] MEDS: THIAMINE HCL 100 MG TABLET (FP) PO SCH (21:39)
[2022-03-26] MEDS: PRENATAL VITAMINS W/ FOLIC ACID TABLET (FP) PO SCH (10:05)
== END 2022-03-26 20:25 | disposition left against medical advice (07) | DRG 770 ==
LOC: YASAS 08:28 → Y3W 12:47
PROVIDERS: ADMIT Allergy & Immunology; ATTEND Allergy & Immunology
PROC: HZ42ZZZ Group Counseling for Substance Abuse Treatment, Cognitive-Behavioral (ICD-10-PCS; principal; 2022-03-22)
DX: F10.20 Alcohol dependence, uncomplicated (principal); F14.20 Cocaine dependence, uncomplicated; Z87.891 Personal history of nicotine dependence
CPT/HCPCS: 36415; 80053; 85027; 86780; C9803-CS; U0003; U0005

== ENCOUNTER 2023-01-14 10:11 | Inpatient (IN) | payer OTHER ==
[2023-01-14 10:52] VITALS: BMI 22.5
[2023-01-14] MEDS ORDERED: IBUPROFEN 400 MG TABLET (FP) PO PRN (11:19)
[2023-01-14] MEDS ORDERED: MAG HYDROX/AL HYDROX/SIMETH 30 ML UNIT-DOSE CUP PO PRN (11:19)
[2023-01-14] MEDS ORDERED: IBUPROFEN 600 MG TABLET (FP) PO PRN (11:19)
[2023-01-14] MEDS ORDERED: MAGNESIUM HYDROX 2400MG/30ML ORAL SUSPENSION 30 ML CUP PO PRN (11:19)
[2023-01-14] MEDS ORDERED: BENZOCAINE/MENTHOL (CHLORASEPTIC ) LOZENGE MM PRN (11:19)
[2023-01-14] MEDS ORDERED: DICYCLOMINE HCL 10 MG CAPSULE PO PRN (11:19)
[2023-01-14] MEDS ORDERED: LOPERAMIDE HCL 2 MG CAPSULE PO PRN (11:19)
[2023-01-14] MEDS ORDERED: ONDANSETRON *ODT* 4 MG TABLET SL PRN (11:19)
[2023-01-14] MEDS ORDERED: ACETAMINOPHEN 325 MG TABLET (FP) PO PRN ×2 (11:19)
[2023-01-14] MEDS ORDERED: METHOCARBAMOL 500 MG TABLET PO PRN (11:19)
[2023-01-14] MEDS ORDERED: NICOTINE POLACRILEX 4 MG GUM BUC PRN (11:19)
[2023-01-14] MEDS ORDERED: diazePAM 5 MG TABLET PO PRN (11:19)
[2023-01-14] MEDS ORDERED: NICOTINE 10 MG CARTRIDGE (INHALER) IH PRN (11:19)
[2023-01-14] MEDS ORDERED: BISMUTH SUBSALICYLATE 262 MG/15 ML BTL PO PRN (11:19)
[2023-01-14] MEDS ORDERED: hydrOXYzine PAMOATE 25 MG CAPSULE (FP) PO PRN (11:19)
[2023-01-14] MEDS ORDERED: POLYETHYLENE GLYCOL (HEALTHYLAX) 3350 17 GM PACKET PO PRN (11:19)
[2023-01-14] MEDS: NICOTINE 21 MG/24 HOURS TOPICAL PATCH TD SCH (13:17)
[2023-01-14 16:37] LABS: HEMATOCRIT 36.8 % (35.4-49); HEMOGLOBIN 12.7 GM/dL (11.7-16.9); MCH 31.9 pg (25.7-33.7); MCHC 34.4 g/dl (32.0-35.9); MEAN CELL VOLUME 92.6 fl (80-96); MEAN PLT VOLUME 7.8 fl (7.5-11.1); PLATELET COUNT 223 10^3/uL (134-434); RBC 3.97 M/mm3 (4.00-5.60); RDW 14.1 % (11.9-15.9)
[2023-01-14] MEDS: diazePAM 5 MG TABLET PO SCH ×2 (17:55→22:59)
[2023-01-14] MEDS: MELATONIN 5 MG TABLETS PO SCH (22:58)
[2023-01-14] MEDS: THIAMINE HCL 100 MG TABLET (FP) PO SCH (22:58)
[2023-01-15] MEDS: diazePAM 5 MG TABLET PO SCH ×4 (05:35→22:55)
[2023-01-15] MEDS: NICOTINE 21 MG/24 HOURS TOPICAL PATCH TD SCH (11:05)
[2023-01-15] MEDS: PRENATAL VITAMINS W/ FOLIC ACID TABLET (FP) PO SCH (11:05)
[2023-01-15 14:40] LABS: ALBUMIN 3.7 g/dl (3.4-5.0); BLOOD UREA NITROGEN 16.4 mg/dL (7-18)
[2023-01-15 14:41] LABS: CALCIUM 9.3 mg/dL (8.5-10.1)
[2023-01-15 14:42] LABS: BILIRUBIN,TOTAL 0.7 mg/dL (0.2-1); CREATININE 1.3 mg/dL (0.55-1.3)
[2023-01-15] MEDS: THIAMINE HCL 100 MG TABLET (FP) PO SCH (22:54)
[2023-01-15] MEDS: MELATONIN 5 MG TABLETS PO SCH (22:54)
[2023-01-16] MEDS: diazePAM 5 MG TABLET PO SCH ×4 (05:58→23:00)
[2023-01-16] MEDS: NICOTINE 21 MG/24 HOURS TOPICAL PATCH TD SCH (10:26)
[2023-01-16] MEDS: PRENATAL VITAMINS W/ FOLIC ACID TABLET (FP) PO SCH (10:26)
[2023-01-16] MEDS: MELATONIN 5 MG TABLETS PO SCH (22:59)
[2023-01-16] MEDS: THIAMINE HCL 100 MG TABLET (FP) PO SCH (23:00)
[2023-01-17] MEDS ORDERED: diazePAM 5 MG TABLET PO SCH (06:00)
[2023-01-17 09:41] VITALS: BP 119/77; PULSE 80; RESP 18; TEMP 97.7
[2023-01-17] MEDS: NICOTINE 21 MG/24 HOURS TOPICAL PATCH TD SCH (09:49)
[2023-01-17] MEDS: PRENATAL VITAMINS W/ FOLIC ACID TABLET (FP) PO SCH (09:49)
[2023-01-18] MEDS ORDERED: diazePAM 5 MG TABLET PO ONE (06:00)
== END 2023-01-17 10:31 | disposition home or self-care (01) | DRG 775 ==
LOC: YASAS 10:11 → Y3N 11:20
PROVIDERS: ADMIT Allergy & Immunology; ATTEND Surgery
PROC: HZ2ZZZZ Detoxification Services for Substance Abuse Treatment (ICD-10-PCS; principal; 2023-01-14)
DX: F10.230 Alcohol dependence with withdrawal, uncomplicated (principal); F17.213 Nicotine dependence, cigarettes, with withdrawal; I10 Essential (primary) hypertension; E78.00 Pure hypercholesterolemia, unspecified
CPT/HCPCS: 36415; 80053; 85027; 86780; 87811; C9803-CS; U0003; U0005

== ENCOUNTER 2024-04-17 19:43 | Inpatient (IN) | payer OTHER ==
[2024-04-17] MEDS ORDERED: LACTATED RINGERS SOLUTION 1000 ML INFUS.BAG IV STA (20:14)
[2024-04-17] MEDS: SODIUM CHLORIDE 0.9% 1000 ML INFUS.BAG IV STA (20:38)
[2024-04-17] MEDS ORDERED: ACETAMINOPHEN INJECTION 100 ML IVPB ONE (20:41)
[2024-04-17 20:42] LABS: VENOUS O2 SATURATION 88.8 % (70-80); VENOUS PCO2 52.7 mmHg (38-52); VENOUS PH 7.351 (7.310-7.410)
[2024-04-17] MEDS ORDERED: CEFTRIAXONE 1 GM/50 ML BAG ONE (20:42)
[2024-04-17] MEDS: ACETAMINOPHEN 1000 MG/100 ML BAG IVPB ONE (20:45)
[2024-04-17 20:52] LABS: INR 1.25 (0.83-1.09)
[2024-04-17 20:55] LABS: ACTIVATED PTT 26.6 SECONDS (25.2-36.5)
[2024-04-17 21:12] LABS: ALBUMIN 2.9 g/dl (3.4-5.0); BLOOD UREA NITROGEN 13.3 mg/dL (7-18); CALCIUM 8.7 mg/dL (8.5-10.1)
[2024-04-17 21:17] LABS: BILIRUBIN,TOTAL 0.4 mg/dL (0.2-1); TOT PROT 7.9 g/dl (6.4-8.2)
[2024-04-17 21:23] LABS: BASO % 0.5 % (0-2.0); EOS % 0.9 % (0-4.5); HEMATOCRIT 33.3 % (35.4-49); HEMOGLOBIN 11.3 GM/dL (11.7-16.9); LYMPH % 9.2 % (8-40); MCH 31.3 pg (25.7-33.7); MCHC 33.9 g/dl (32.0-35.9); MEAN CELL VOLUME 92.2 fl (80-96); MEAN PLT VOLUME 7.3 fl (7.5-11.1); MONO % 7.5 % (3.8-10.2); NEUT % 81.9 % (42.8-82.8); PLATELET COUNT 391 10^3/uL (134-434); RBC 3.61 M/mm3 (4.00-5.60); RDW 14.3 % (11.9-15.9); WHITE BLOOD COUNT 11.2 K/mm3 (4.0-10.0)
[2024-04-17] MEDS ORDERED: AZITHROMYCIN IVPB 500 MG/250 ML BAG IVPB ONE (21:23)
[2024-04-17] MEDS: AZITHROMYCIN IVPB 500 MG in DEXTROSE 5%-WATER - 250 ML IVPB ONE (21:35)
[2024-04-17 21:45] LABS: EPI CELLS 4 /uL (0-25.1); HYALINE CASTS 1 /uL (0-3.1); PH,URINE 5.5 (5.0-8.0); URINE APPEARANCE CLEAR; URINE BACTERIA 2 /uL (0-1359); URINE BILIRUBIN NEGATIVE (NEGATIVE); URINE COLOR DK YELLOW; URINE GLUCOSE (UA) NEGATIVE (NEGATIVE); URINE KETONE TRACE (NEGATIVE); URINE LEUK ESTERASE NEGATIVE (NEGATIVE); URINE NITRITE NEGATIVE (NEGATIVE); URINE PROTEIN 1+ (NEGATIVE); URINE RBC 29 /uL (0-23.9); URINE WBC 9 /uL (0-25.8)
[2024-04-17] MEDS ORDERED: ACETAMINOPHEN 325 MG TABLET (FP) PO PRN (22:50)
[2024-04-17] MEDS ORDERED: guaiFENesin/D-METHORPHAN HB 10 ML UNIT-DOSE CUPS PO PRN (22:50)
[2024-04-17] MEDS ORDERED: NICOTINE POLACRILEX 2 MG GUM BUC PRN (22:53)
[2024-04-17] MEDS ORDERED: MELATONIN 5 MG TABLETS ONE (23:29)
[2024-04-17] MEDS: MELATONIN 5 MG TABLETS PO PRN (23:31)
[2024-04-18] MEDS ORDERED: NICOTINE POLACRILEX 2 MG GUM BUC PRN (01:20)
[2024-04-18] MEDS: NICOTINE 21 MG/24 HOURS TOPICAL PATCH TD SCH (01:28)
[2024-04-18] MEDS: SODIUM CHLORIDE 1,000 ML IV SCH (01:28)
[2024-04-18] MEDS ORDERED: cloNIDine HCL 0.1 MG TABLET PO PRN (01:30)
[2024-04-18 07:19] LABS: BASO % 0.9 % (0-2.0); EOS % 2.5 % (0-4.5); HEMATOCRIT 29.3 % (35.4-49); HEMOGLOBIN 10.1 GM/dL (11.7-16.9); LYMPH % 15.4 % (8-40); MCH 33.1 pg (25.7-33.7); MCHC 34.4 g/dl (32.0-35.9); MEAN CELL VOLUME 96.4 fl (80-96); MEAN PLT VOLUME 7.8 fl (7.5-11.1); MONO % 10.6 % (3.8-10.2); NEUT % 70.6 % (42.8-82.8); PLATELET COUNT 349 10^3/uL (134-434); RBC 3.04 M/mm3 (4.00-5.60); RDW 14.1 % (11.9-15.9); WHITE BLOOD COUNT 8.2 K/mm3 (4.0-10.0)
[2024-04-18 07:37] LABS: POTASSIUM 4.7 mmol/L (3.5-5.1)
[2024-04-18 07:45] LABS: ALBUMIN 2.4 g/dl (3.4-5.0); MAGNESIUM 2.1 mg/dL (1.8-2.4)
[2024-04-18 07:47] LABS: CREATININE 0.8 mg/dL (0.55-1.3)
[2024-04-18 07:49] LABS: BILIRUBIN,TOTAL 0.5 mg/dL (0.2-1); TOT PROT 6.5 g/dl (6.4-8.2)
[2024-04-18] MEDS ORDERED: methaDONE HCL 40 MG DISPERSABLE TABLET PO ONE (09:15)
[2024-04-18] MEDS ORDERED: methaDONE HCL 10 MG TABLET ONE ×2 (09:20→18:51)
[2024-04-18] MEDS ORDERED: THIAMINE 100 MG TABLET ONE (09:20)
[2024-04-18] MEDS ORDERED: AZITHROMYCIN 500 MG TABLET ONE (09:21)
[2024-04-18] MEDS ORDERED: NICOTINE 21 MG/24 HOURS TOPICAL PATCH ONE (09:21)
[2024-04-18] MEDS ORDERED: ENOXAPARIN NA (PORCINE) 40 MG/0.4 ML DISP.SYRIN SQ ONE (09:21)
[2024-04-18] MEDS ORDERED: CEFTRIAXONE 1 GM/50 ML BAG ONE (09:21)
[2024-04-18] MEDS ORDERED: FOLIC ACID 1 MG TABLET (FP) ONE (09:21)
[2024-04-18] MEDS: AZITHROMYCIN 500 MG TABLET PO SCH (09:34)
[2024-04-18] MEDS: ENOXAPARIN NA (PORCINE) 40 MG/0.4 ML DISP.SYRIN SQ SCH (09:34)
[2024-04-18] MEDS: FOLIC ACID 1 MG TABLET (FP) PO SCH (09:34)
[2024-04-18] MEDS: methaDONE HCL 10 MG TABLET PO ONE (09:34)
[2024-04-18] MEDS: THIAMINE 100 MG TABLET PO SCH (09:34)
[2024-04-18] MEDS: CEFTRIAXONE 1 GM in DEXTROSE 5%-WATER - 50 ML IVPB SCH (09:34)
[2024-04-19 03:32] VITALS: RESP 18; BMI 20.6
[2024-04-19] MEDS: methaDONE HCL 10 MG TABLET PO ONE ×2 (05:18→13:13)
[2024-04-19 09:50] LABS: BASO % 0.6 % (0-2.0); HEMATOCRIT 33.8 % (35.4-49); LYMPH % 13.1 % (8-40); MCHC 35.4 g/dl (32.0-35.9); MEAN CELL VOLUME 93.1 fl (80-96); MEAN PLT VOLUME 7.4 fl (7.5-11.1); MONO % 7.4 % (3.8-10.2); NEUT % 76.9 % (42.8-82.8); PLATELET COUNT 422 10^3/uL (134-434); RBC 3.63 M/mm3 (4.00-5.60); RDW 14.2 % (11.9-15.9); WHITE BLOOD COUNT 7.7 K/mm3 (4.0-10.0)
[2024-04-19 10:08] LABS: POTASSIUM 4.4 mmol/L (3.5-5.1)
[2024-04-19 10:18] LABS: PHOSPHOROUS 3.2 mg/dL (2.5-4.9)
[2024-04-19 10:19] LABS: BLOOD UREA NITROGEN 6.7 mg/dL (7-18)
[2024-04-19 10:20] LABS: ALBUMIN 2.8 g/dl (3.4-5.0); TOT PROT 7.9 g/dl (6.4-8.2)
[2024-04-19 10:21] LABS: BILIRUBIN,TOTAL 0.5 mg/dL (0.2-1); CALCIUM 9.1 mg/dL (8.5-10.1); CREATININE 0.9 mg/dL (0.55-1.3); MAGNESIUM 2.1 mg/dL (1.8-2.4)
[2024-04-19] MEDS: methaDONE 40 MG, methaDONE 10 MG PO ONE (10:46)
[2024-04-19] MEDS: CEFTRIAXONE 2 GM in DEXTROSE 5%-WATER 100 ML IVPB SCH (12:18)
[2024-04-20] MEDS: methaDONE 40 MG, methaDONE 20 MG PO SCH (05:45)
[2024-04-20] MEDS: CEFUROXIME AXETIL 500 MG TABLET PO SCH (08:02)
[2024-04-20 08:53] LABS: HEMATOCRIT 34.1 % (35.4-49); HEMOGLOBIN 11.9 GM/dL (11.7-16.9); MCH 32.2 pg (25.7-33.7); MCHC 34.7 g/dl (32.0-35.9); MEAN CELL VOLUME 92.8 fl (80-96); MEAN PLT VOLUME 7.5 fl (7.5-11.1); PLATELET COUNT 492 10^3/uL (134-434); RBC 3.68 M/mm3 (4.00-5.60); RDW 14.3 % (11.9-15.9); WHITE BLOOD COUNT 6.6 K/mm3 (4.0-10.0)
[2024-04-20 09:08] LABS: POTASSIUM 4.8 mmol/L (3.5-5.1)
[2024-04-20 09:10] LABS: ALBUMIN 2.7 g/dl (3.4-5.0); BLOOD UREA NITROGEN 9.4 mg/dL (7-18); CALCIUM 9.2 mg/dL (8.5-10.1)
[2024-04-20 09:14] LABS: CREATININE 0.9 mg/dL (0.55-1.3)
[2024-04-20 09:16] LABS: BILIRUBIN,TOTAL 0.4 mg/dL (0.2-1); TOT PROT 7.8 g/dl (6.4-8.2)
[2024-04-20 10:29] VITALS: BP 123/75; PULSE 55; TEMP 98.8
[2024-04-22] MEDS ORDERED: methaDONE HCL 10 MG TABLET (FOR DETOX USE ONLY) PO ONE (10:00)
== END 2024-04-20 14:36 | disposition other institution (70) | DRG 139 ==
LOC: JER 19:43 → JERBED 20:21 → J6S 04-18 22:10
PROVIDERS: ADMIT Internal Medicine; ATTEND Student in an Organized Health Care Education/Training Program
PROC: HZ2ZZZZ Detoxification Services for Substance Abuse Treatment (ICD-10-PCS; principal; 2024-04-17)
DX: J18.9 Pneumonia, unspecified organism (principal); G92.8 Other toxic encephalopathy; F11.20 Opioid dependence, uncomplicated; F12.90 Cannabis use, unspecified, uncomplicated; F14.20 Cocaine dependence, uncomplicated; F10.20 Alcohol dependence, uncomplicated; F25.9 Schizoaffective disorder, unspecified; G47.00 Insomnia, unspecified; I10 Essential (primary) hypertension; F17.210 Nicotine dependence, cigarettes, uncomplicated; J45.909 Unspecified asthma, uncomplicated; Z59.00 Homelessness unspecified
CPT/HCPCS: 0241U-QW; 36415; 71045-TC-FY; 71250-TC; 80053; 81003; 82803; 83605; 83735; 84100; 84484; 85025; 85027; 85610; 85730; 86850; 86870; 86880; 86900; 86901; 86902; 87040; 87086; 87899; 93005; 93010; 99285-25; J0131

== ENCOUNTER 2024-04-20 16:39 | Inpatient (IN) | payer OTHER ==
[2024-04-20 17:42] VITALS: BMI 21.6
[2024-04-20] MEDS ORDERED: BENZONATATE 200 MG CAPSULE PO PRN (19:23)
[2024-04-20] MEDS ORDERED: IBUPROFEN 400 MG TABLET (FP) PO PRN (19:23)
[2024-04-20] MEDS ORDERED: NALOXONE HCL (KLOXXADO) 8 MG SPRAY NS PRN (19:23)
[2024-04-20] MEDS ORDERED: hydrOXYzine PAMOATE 25 MG CAPSULE (FP) PO PRN (19:23)
[2024-04-20] MEDS ORDERED: ACETAMINOPHEN 325 MG TABLET (FP) PO PRN (19:23)
[2024-04-20] MEDS ORDERED: POLYETHYLENE GLYCOL (HEALTHYLAX) 3350 17 GM PACKET PO PRN (19:23)
[2024-04-20] MEDS ORDERED: MAG HYDROX/AL HYDROX/SIMETH 30 ML UNIT-DOSE CUP PO PRN (19:23)
[2024-04-20] MEDS ORDERED: guaiFENesin 600 MG TABLET.ER (FP) PO PRN (19:23)
[2024-04-20] MEDS ORDERED: MAGNESIUM HYDROX 2400MG/30ML ORAL SUSPENSION 30 ML CUP PO PRN (19:23)
[2024-04-20] MEDS ORDERED: LOPERAMIDE HCL 2 MG CAPSULE PO PRN (19:23)
[2024-04-20] MEDS ORDERED: NALOXONE HCL 0.4 MG/ML VIAL IM PRN (19:23)
[2024-04-20] MEDS ORDERED: IBUPROFEN 600 MG TABLET (FP) PO PRN (19:23)
[2024-04-20] MEDS: MELATONIN 5 MG TABLETS PO SCH (21:51)
[2024-04-20] MEDS: THIAMINE 100 MG TABLET PO SCH (21:51)
[2024-04-20] MEDS: CEFUROXIME AXETIL 500 MG TABLET PO SCH (22:57)
[2024-04-21] MEDS ORDERED: methaDONE HCL 10 MG TABLET PO SCH (06:00)
[2024-04-21] MEDS: methaDONE 40 MG, methaDONE 20 MG PO SCH (06:08)
[2024-04-21] MEDS: PRENATAL VITAMINS W/ FOLIC ACID TABLET (FP) PO SCH (10:14)
[2024-04-21] MEDS ORDERED: TUBERCULIN PPD 5 TU/0.1ML VIAL ID ONE ×2 (11:23→13:34)
[2024-04-21 12:19] LABS: EPI CELLS 10 /uL (0-25.1); HYALINE CASTS 15 /uL (0-3.1); PH,URINE 5.5 (5.0-8.0); URINE APPEARANCE CLEAR; URINE BACTERIA 5 /uL (0-1359); URINE BILIRUBIN NEGATIVE (NEGATIVE); URINE COLOR DK YELLOW; URINE GLUCOSE (UA) NEGATIVE (NEGATIVE); URINE KETONE NEGATIVE (NEGATIVE); URINE LEUK ESTERASE NEGATIVE (NEGATIVE); URINE NITRITE NEGATIVE (NEGATIVE); URINE PROTEIN TRACE (NEGATIVE); URINE RBC 40 /uL (0-23.9); URINE UROBILINOGEN 0.2 mg/dL (0.2-1.0); URINE WBC 31 /uL (0-25.8)
[2024-04-21] MEDS: AZITHROMYCIN 500 MG TABLET PO SCH (13:27)
[2024-04-21 14:53] LABS: HEMATOCRIT 35.9 % (35.4-49); HEMOGLOBIN 12.2 GM/dL (11.7-16.9); MCH 32.6 pg (25.7-33.7); MCHC 33.9 g/dl (32.0-35.9); MEAN PLT VOLUME 7.6 fl (7.5-11.1); PLATELET COUNT 574 10^3/uL (134-434); RBC 3.74 M/mm3 (4.00-5.60); RDW 14.4 % (11.9-15.9); WHITE BLOOD COUNT 6.2 K/mm3 (4.0-10.0)
[2024-04-21 14:54] LABS: CHLORIDE 100 mmol/L (98-107); POTASSIUM 4.9 mmol/L (3.5-5.1); SODIUM 139 mmol/L (136-145)
[2024-04-21 14:59] LABS: CALCIUM 9.6 mg/dL (8.5-10.1)
[2024-04-21 15:01] LABS: ALBUMIN 3.1 g/dl (3.4-5.0); ANION GAP 3 mmol/L (4-13); BLOOD UREA NITROGEN 14.7 mg/dL (7-18); CO2 36 mmol/L (21-32); GLUCOSE,RANDOM 114 mg/dL (74-106)
[2024-04-21 15:03] LABS: SGOT/AST 18 U/L (15-37); SGPT/ALT 28 U/L (13-61); TOT PROT 8.6 g/dl (6.4-8.2)
[2024-04-21 15:04] LABS: BILIRUBIN,TOTAL 0.3 mg/dL (0.2-1)
[2024-04-21 15:05] LABS: ALK PHOS 96 U/L (45-117)
[2024-04-21 16:38] LABS: SYPHILIS W/ RPR CONF NON-REACTIVE (NONREACTIVE)
[2024-04-21] MEDS: QUEtiapine FUMARATE 100 MG TABLET (FP) PO SCH (21:05)
[2024-04-22] MEDS: methaDONE 40 MG, methaDONE 20 MG PO ONE (06:55)
[2024-04-25] MEDS: BENZOCAINE/MENTHOL (CHLORASEPTIC ) LOZENGE MM PRN (12:03)
[2024-04-25] MEDS: traZODone HCL 50 MG TABLET (FP) PO SCH (21:18)
[2024-04-26 12:33] LABS: HIV INTERPRETATION NEGATIVE (NEGATIVE)
[2024-04-28 07:00] VITALS: BP 142/74; PULSE 76; RESP 16; TEMP 97.7
== END 2024-04-28 10:22 | disposition home or self-care (01) | DRG 772 ==
LOC: YASAS 16:39 → Y3W 19:54
PROVIDERS: ADMIT Allergy & Immunology; ATTEND Psychiatry & Neurology Pain Medicine
PROC: HZ42ZZZ Group Counseling for Substance Abuse Treatment, Cognitive-Behavioral (ICD-10-PCS; principal; 2024-04-20)
DX: F11.20 Opioid dependence, uncomplicated (principal); F14.20 Cocaine dependence, uncomplicated; F17.210 Nicotine dependence, cigarettes, uncomplicated; F25.9 Schizoaffective disorder, unspecified; F19.282 Other psychoactive substance dependence with psychoactive substance-induced sleep disorder; Z87.01 Personal history of pneumonia (recurrent); Z62.810 Personal history of physical and sexual abuse in childhood; Z63.8 Other specified problems related to primary support group
CPT/HCPCS: 36415; 80053; 80305; 80307; 81003; 82962; 83036; 85027; 86780; 86803; 87389; 87811; 93005; 93010

== ENCOUNTER 2025-05-10 06:00 | Emergency (ER) | payer OTHER ==
[2025-05-10 06:08] VITALS: RESP 18; BMI 22.5
[2025-05-10] MEDS ORDERED: KETOROLAC TROMETHAMINE 15 MG/ML VIAL IVPUSH ONE (07:31)
[2025-05-10] MEDS ORDERED: KETOROLAC TROMETHAMINE 30 MG/1 ML VIAL ONE (07:40)
[2025-05-10] MEDS: KETOROLAC TROMETHAMINE 30 MG/1 ML VIAL IVPUSH ONE (07:45)
[2025-05-10 07:53] LABS: ABSOLUTE IMMATURE GRANULOCYTES 0.03 x10^3/uL (0.0-0.031); BASOPHILS # 0.02 x10^3/uL (0.01-0.08); EOSINOPHIL % 2.3 % (0.8-7.0); EOSINOPHILS # 0.15 x10^3/uL (0.04-0.54); HEMATOCRIT 39.4 % (40.1-51.0); HEMOGLOBIN 13.2 g/dL (13.7-17.5); MCHC 33.5 g/dl (32.3-36.5); MEAN CELL VOLUME 90.6 fl (79.0-92.2); MEAN PLT VOLUME 10.9 fl (9.4-12.4); MONOCYTE # 0.66 x10^3/uL (0.30-0.82); MONOCYTE % 10.1 % (5.3-12.2); PLATELET COUNT 262 x10^3/uL (163-337); RDW 13.9 % (12.2-16.1)
[2025-05-10 08:47] LABS: ALBUMIN 3.7 g/dl (3.4-5.0); BLOOD UREA NITROGEN 18.1 mg/dL (7-18)
[2025-05-10 08:48] LABS: CALCIUM 8.8 mg/dL (8.5-10.1)
[2025-05-10 08:50] LABS: CREATININE 1.1 mg/dL (0.55-1.3)
[2025-05-10 08:52] LABS: BILIRUBIN,TOTAL 0.3 mg/dL (0.2-1); TOT PROT 7.5 g/dl (6.4-8.2)
[2025-05-10 08:56] LABS: MAGNESIUM 2.1 mg/dL (1.8-2.4)
[2025-05-10 10:10] VITALS: BP 123/86; PULSE 63; TEMP 97.7
[2025-05-10 10:23] LABS: INR 1.09 (0.83-1.09); PROTHROMBIN TIME (PATIENT) 11.9 SEC (9.7-13.0)
[2025-05-10 10:26] LABS: ACTIVATED PTT 30.8 SECONDS (25.2-36.5)
== END 2025-05-10 12:28 | disposition home or self-care (01) ==
LOC: JER 06:00
PROC: 3E0333Z Introduction of Anti-inflammatory into Peripheral Vein, Percutaneous Approach (ICD-10-PCS; principal; 2025-05-10)
DX: R07.81 Pleurodynia (principal); F19.20 Other psychoactive substance dependence, uncomplicated
CPT/HCPCS: 36415; 71045-TC-FY; 71046-TC-FY; 80053; 83735; 84484; 85025; 85610; 85730; 93005; 93010; 99285-25